=== PATIENT | female | born 1985 | race Caucasian/White ===

== ENCOUNTER 2020-09-02 10:39 | Outpatient (REF) | payer OTHER, SELFPAY | END 2020-09-02 10:40 | disposition home or self-care (01) | LOC: HO.LAB 10:39 | PROVIDERS: Visit Provider Internal Medicine | DX: Z20.828 Contact with and (suspected) exposure to other viral communicable diseases (principal) | CPT/HCPCS: C9803; U0003 ==

== ENCOUNTER 2020-10-17 10:56 | Outpatient (REF) | payer OTHER, SELFPAY | END 2020-10-17 10:57 | disposition home or self-care (01) | LOC: HO.LAB 10:56 | PROVIDERS: Visit Provider Internal Medicine | DX: Z20.828 Contact with and (suspected) exposure to other viral communicable diseases (principal) | CPT/HCPCS: C9803; U0003 ==

== ENCOUNTER 2020-11-07 10:34 | Outpatient (REF) | payer OTHER, SELFPAY | END 2020-11-07 10:35 | disposition home or self-care (01) | LOC: HO.LAB 10:34 | PROVIDERS: Visit Provider Internal Medicine | DX: Z20.822 Contact with and (suspected) exposure to COVID-19 (principal) | CPT/HCPCS: 36415; C9803; U0003 ==

== ENCOUNTER 2021-06-12 06:26 | Emergency (ER) | payer OTHER, SELFPAY ==
[2021-06-12 06:43] VITALS: BP 144/76; PULSE 107; RESP 24; TEMP 36.9; O2SAT 95; BMI 36.6
--- NOTE | 2021-06-12 06:44 | ED_ITS ---
HPI - Asthma General Chief Complaint: Dyspnea Stated Complaint: Asthma Time Seen by Provider: 06/12/21 06:44 Source: patient Mode of arrival: ambulatory Limitations: no limitations History of Present Illness complaint: asthma attack and wheezing Onset (ago): day(s) (today) Severity: moderate Context: other (?weather changes) Associated symptoms: none Asthma History: childhood onset Related Data Home Medications Medication Instructions Recorded Confirmed fluticasone propionate 50 INTRANASAL 09/27/20 09/27/20 mcg/actuation nasal spray,suspension Previous Rx's Medication Instructions Recorded albuterol sulfate 90 mcg/actuation 2 inh INHALATION Q3-4H #18 g 09/27/20 aerosol inhaler prednisone 20 mg tablet 60 mg PO DAILY 4 Days #12 tab 06/12/21 Allergies Allergy/AdvReac Type Severity Reaction Status Date / Time No Known Allergies Allergy Unknown NKA Verified 06/12/21 06:47 Review of Systems Review of Systems: Constitutional : No Fever, No Chills ENT/Mouth : No Hoarseness, No sore throat, No Rhinorrhea Eyes: No Redness, No Discharge, No Vision Changes Cardiovascular : No Chest Pain, positive SOB, positive Dyspnea on Exertion, No Edema Respiratory : positive Cough, No Sputum, positive Wheezing, Gastrointestinal : No Nausea, No Vomiting, No Diarrhea, No abdominal Pain Genitourinary : No Dysuria, No Hematuria Musculoskeletal : No joint pain, No Myalgias Skin : No rash Neuro : No Weakness, No Numbness, No Headache Psych : No anxiety, depression Heme/Lymph: No Bruising, No Bleeding Endocrine : No Polyuria, No Polydipsia All other systems reviewed and are negative [facility] Past Medical History Medical History Asthma Surgical History History of cholecystectomy Family History Family History Father Alcoholism Drug abuse Mother Hypertension Family/Other Hypertension Asthma Social History Social History (Updated 06/12/21 @ 06:59 by Ute Cleary DO) Alcohol intake: never Patient Tobacco Use Status: Current everyday Tobacco user Advance Directives: No Patient : No Physical Exam Vital Signs: Vital Signs: Last Vital Signs Temp 98.5 F 06/12/21 06:43 Pulse 90 08/23/21 07:02 Resp 24 H 06/12/21 06:43 BP 144/76 H 06/12/21 06:43 Pulse Ox 95 06/12/21 06:43 Body Mass Index 36.6 Appearance: Alert. Oriented X3. No acute distress. Eyes: Pupils equal, round and reactive to light. ENT: Pharynx normal. Neck: Normal inspection. Neck supple. CVS: Normal heart rate and rhythm. Pulses normal. Respiratory: No respiratory distress. Breath sounds diffuse mild end exp wheezes Abdomen: Soft and non-tender. Skin: Skin warm and dry. Normal skin color. Normal skin turgor. Extremities: No lower extremity edema. No calf ttp Neuro: Oriented X 3. No motor deficit. No sensory deficit. Course Course Course Narrative: 98% on RA, feels better, lungs CTAB after neb MDM - Asthma MDM Narrative Medical decision making narrative: 36 yo female with hx of asthma uses INH comes in with wheezing no fevers/productive cough or chest pain. Hx of same in the [place] [facility] this time of year. Will obtain COVID swab, 5mg neb, PO steroids, dispo per results and improvement Lab Data Labs: Lab Results 06/12/21 Range/Units 06:49 COVID-19 ([facility]) Negative (Negative) COVID-19 Clin Com See Note Discharge Plan Discharge Clinical Impression: Asthma Qualifiers: Asthma severity: moderate Asthma persistence: persistent Asthma complication type: with acute exacerbation Qualified Code(s): J45.41 - Moderate persistent asthma with (acute) exacerbation Patient Disposition: Home, Self-Care Instructions: Asthma (ED) Additional Instructions: return to ED for any worsening symptoms or concerns YOUR COVID TEST WAS NEGATIVE IN THE EMERGENCY DEPARTMENT TODAY TAKE 2 PUFFS EVERY 3 HOURS ON YOUR INHALER Prescriptions: New prednisone 20 mg tablet 60 mg PO DAILY 4 Days Qty: 12 RF: 0 No Action fluticasone propionate 50 mcg/actuation spray,suspension intranasal RF: 0 albuterol sulfate 90 mcg/actuation HFA aerosol inhaler 2 inh inhalation Q3-4H Qty: 18 RF: 8 Referrals: Jorge Gomez MD [Primary Care Provider] - 2 days (if not better) Stand Alone Forms: Work/School Release
[2021-06-12] MEDS: predniSONE 20 MG TABLET 60 MG PO (06:51)
[2021-06-12] MEDS: Albuterol Sulfate (0.083%) 2.5 MG/3 ML VIAL.NEB 5 MG INHALE (07:00)
[2021-06-12 07:02] VITALS: PULSE 90; O2SAT 99
[2021-06-12 07:11] LABS: COVID-19 Test Negative (Negative)
[2021-06-12 07:33] VITALS: PULSE 112; RESP 20; O2SAT 99
== END 2021-06-12 07:34 | disposition home or self-care (01) ==
PROVIDERS: Emergency Provider Emergency Medicine; PCP Internal Medicine
DX: J45.41 Moderate persistent asthma with (acute) exacerbation (principal); R06.00 Dyspnea, unspecified; Z20.822 Contact with and (suspected) exposure to COVID-19; Z79.899 Other long term (current) drug therapy
CPT/HCPCS: 36415; 87635; 94640; 99283; 99284

== ENCOUNTER 2023-11-18 13:07 | Outpatient (AMB) | payer OTHER, SELFPAY ==
[2023-11-18 13:10] VITALS: BP 138/86; PULSE 85; O2SAT 100; BMI 37.8
--- NOTE | 2023-11-18 13:10 | A.OFFPC_ITS ---
Vital Signs 11/18/23 13:10 Height 5 ft 5 in Weight 227 lb BMI 37.8 BP 138/86 Blood Pressure Location Lt brachial Position Sitting Pulse 85 Pulse Source Pulse Oximeter Pulse Oximetry (%) 100 Oxygen Delivery Method Room Air Intake Visit Reasons: I feel a lump in my stomach Traffic Circuit Engineer Required: No Fiscal Analyst: Present Allergies No Known Allergies Allergy (Unknown, Verified 11/18/23 13:10) NKA Tobacco use date assessed: 11/18/23 Dental Screening Dental Screen Date: 11/18/23 Did you have a dental visit in the last 12 months?: No Did you have a dental problem in the last 6 months where you did not have access to dental care?: No Was dental information given to patient?: Patient has dentist HPI I feel a lump in my stomach HPI Details enlargemet and discofort in upper abd whic appears to be a ventral hernia; she is obese [facility] Medical History (Updated 11/19/23 @ 09:22 by Jorge Gomez MD) Obesity Asthma Surgical History History of cholecystectomy Family History Father Alcoholism Drug abuse Substance use disorder Mother Hypertension Family/Other Hypertension Asthma Social History Housing: House Alcohol intake: never Patient Tobacco Use Status: Current everyday Tobacco user Tobacco use type: Cigarette Cigarettes Per Day: 2 e-Cigarette/Vaping Use: Never Used Second Hand Smoke Exposure: No service: No Current occupational status: employed Current occupational exposures/hazards: No Cognitive needs: No Hearing needs: No Vision needs: No Questionnaire PHQ-9 Over the last 2 weeks, how often have you been bothered by any of the following problems? 1. Little interest or pleasure in doing things: not at all 2. Feeling down, depressed, or hopeless: not at all 3. Trouble falling or staying asleep, or sleeping too much: not at all 4. Feeling tired or having little energy: not at all 5. Poor appetite or overeating: not at all 6. Feeling bad about yourself - or that you are a failure or have let yourself or your family down: not at all 7. Trouble concentrating on things, such as reading the newspaper or watching television: not at all 8. Moving or speaking so slowly that other people could have noticed. Or the opposite - being so fidgety or restless that you have been moving around a lot more than usual: not at all 9. Thoughts that you would be better off or of hurting yourself in some way: not at all Total score: 0 Depression Screening Interpretation: Negative Depression Screening Done: Yes 60827 - PHQ-9 Billing: Yes Source: Developed by Drs. Teddy Cannon, Anne Justice, Josh Isaac and colleagues, with an educational frannie from [employer]. Thrive Questionnaire Date Thrive assessed: 11/18/23 I am a: Patient What is your living situation today?: I have a steady place to live Within the past 12 months, did the food you bought not last and you didn't have the money to get more?: Never true Within the past 12 months, did you worry whether your food would run out before you got money to buy more?: Never true Do you have trouble paying for medicines?: No Do you have trouble getting transportation to medical appointments?: No Do you have trouble paying your heating and electricity bill?: No Do you have trouble taking care of your child, family member or friend?: No Do you have trouble with day-to-day activities such as bathing, preparing meals, shopping, managing finances, etc.?: No Are you currently unemployed and looking for a job?: No Are you interested in more education?: No Please select the resources that you would like help with: None THRIVE Score: 0 AUDIT C Alcohol Use Questionnaire (AUDIT-C) 1. How often do you have a drink containing alcohol?: 2-4 times a month 2. How many drinks containing alcohol do you have on a typical day when you are drinking?: 1 or 2 3. How often do you have six or more drinks on one occasion?: Never Total Score: 2 Score Reviewed/Action Taken: Yes BROOKLYNN-7 AMB Questionnaire BROOKLYNN-7 Date BROOKLYNN - 7 assessed: 11/18/23 Feeling nervous, anxious, or on edge: 0 = Not at all Not being able to stop or control worryin = Not at all Worrying too much about different things: 0 = Not at all Trouble relaxin = Not at all Being so restless that it is hard to sit still: 0 = Not at all Becoming easily annoyed or irritable: 0 = Not at all Feeling afraid as if something awful might happen: 0 = Not at all Total BROOKLYNN-7 score (0-4 normal; 5-9 mild; 10-14 moderate; 15-21 severe): 0 Source: Developed by Drs. Teddy Cannon, Anne Justice, Josh Isaac and colleagues, with an educational frannie from [employer]. Review of Systems Const Denies chills, Denies headache(s) and Denies weight loss ENT Denies headache(s) Card Denies chest pain, Denies syncope, Denies irregular heart rhythm and Denies dyspnea Resp Denies chest congestion, Denies cough and Denies dyspnea GI Denies abdominal pain, Denies change in stool character, Denies nausea and Denies vomiting Musc Denies deformity and Denies joint swelling Neuro Denies syncope and Denies headache(s) Physical exam (Primary Care) Vital Signs: Last Vital Signs Pulse 85 11/18/23 13:10 BP 138/86 11/18/23 13:10 Pulse Ox 100 11/18/23 13:10 Oxygen Delivery Method Room Air 11/18/23 13:10 BMI result Body Mass Index 37.8 Tobacco/Smoking Status: Tobacco use Status Tobacco use date assessed 11/18/23 11/18/23 13:12 Patient Tobacco Use Status Current everyday Tobacco 11/18/23 13:12 Tobacco use type Cigarette 11/18/23 13:12 e-Cigarette/Vaping Use Never Used 11/18/23 13:12 PHQ-9: PHQ-9 Score PHQ-9: Total score 0 11/18/23 13:18 Depression Screening Interpretation: Negative Thrive Assessment: Date of Thrive Assessment Date Thrive assessed 11/18/23 11/18/23 13:12 Const General: cooperative, comfortable, no acute distress and alert Neck Neck: Yes no lymphadenopathy Thyroid: Thyroid normal Resp Effort & Inspection: normal respiratory effort Auscultation: clear to auscultation bilaterally Percussion: percussion normal Cardio Jugular venous distension: no JVD Palpation: normal PMI Rate: regular rate Rhythm: regular rhythm Heart sounds: S1 normal heart sound present and S2 normal heart sound present GI Other: 4 cm ventral hernia Palpation (GI): No hepatosplenomegaly present Skin General skin exam: no rashes or lesions noted Extrem General: Yes no clubbing, cyanosis or edema Assessment and Plan Assessment & Plan (1) Ventral hernia: Code(s): K43.9 - Ventral hernia without obstruction or gangrene Plan: ct ordered Orders: Orders CT abdomen wo IV con 11/18/23 K43.9 - Ventral hernia without obstruction or lewis grene Coding Level of Care Code Est Pt Level 3 (59236) Diagnoses Ventral hernia K43.9
== END 2023-11-18 13:24 | disposition home or self-care (01) ==
PROVIDERS: PCP Internal Medicine; Visit Provider Internal Medicine
DX: K43.9 Ventral hernia without obstruction or gangrene (principal)
CPT/HCPCS: 99213

== ENCOUNTER 2024-01-07 14:44 | Outpatient (REF) | payer OTHER, SELFPAY ==
--- NOTE | ~2024-01-07 | CT_ITS ---
EXAMINATION: CT ABDOMEN WITHOUT CONTRAST CLINICAL INFORMATION: Ventral hernia without obstruction. COMPARISON: Abdominal ultrasound dated 01/23/2008. TECHNIQUE: Contiguous axial thin section helical images of the abdomen were performed without contrast. The data set was reformatted in the coronal and sagittal planes and reviewed on an independent workstation. This CT examination was performed using dose optimization techniques as appropriate, variously including the following: *Automated exposure control *Adjustment of mA and/or kV according to patient size (this includes techniques or standardized protocols for targeted exams where dose is matched to indication/reason for exam; i.e. extremities or head) *Use of iterative reconstruction technique DLP: 518 mGy-cm FINDINGS: LUNG BASES: At the posterolateral right base (4:89), a 7 mm noncalcified nodule is seen. LIVER, GALLBLADDER, AND BILIARY TREE: The liver is normal in size, shape, and attenuation. No focal hepatic lesion or biliary ductal dilatation is present. The gallbladder is surgically absent. PANCREAS: Unremarkable SPLEEN: Unremarkable ADRENAL GLANDS: Unremarkable KIDNEYS AND URETERS: The kidneys are normal in size, shape, and attenuation. No hydronephrosis, hydroureter, or calculi seen. No perinephric stranding. GASTROINTESTINAL TRACT: The small and large bowel are unremarkable. No obstruction, free intraperitoneal air or abscess is seen. There is no focal bowel wall thickening. The vermiform appendix is not included in the [id number]. ABDOMINAL WALL: A fat-containing supraumbilical hernia defect is seen (3:46 and 6:98). This shows hernia sac dimensions of 10.6 x 5.4 x 7.4 cm and a neck measuring 2.5 x 1.8 cm. As well, there is an umbilical hernia defect with neck measuring 2.0 x 1.6 cm (4:438 and 6:106). LYMPH NODES: Normal VASCULAR: Unremarkable OSSEOUS STRUCTURES: There is multi-level mild lumbar endplate arthropathy. There is a bilateral L5 spondylolysis defect. No acute or aggressive osseous abnormality is seen. CT/CT abdomen wo IV con IMPRESSION: 1. A fat-containing supraumbilical hernia defect is seen, with dimensions as detailed. In addition, there is a smaller fat-containing umbilical hernia defect. 2. The gallbladder is surgically absent. 3. There is a bilateral L5 spondylolysis defect. 4. A 7 mm noncalcified, nonspecific nodule seen at the posterolateral right base. According to the UPDATED 2017 Fleischner Society recommendations, the advised follow-up imaging for a single 6-8 mm solid nodule is: LOW RISK PATIENT: CT at 6-12 months, then consider CT at 18-24 months. HIGH RISK PATIENT: CT at 6-12 months, then at 18-[address] examination of the chest at this time. Fleischner guidelines were followed.
== END 2024-01-07 14:45 | disposition home or self-care (01) ==
LOC: HO.CT 14:44
PROVIDERS: PCP Internal Medicine; Visit Provider Internal Medicine
DX: K43.9 Ventral hernia without obstruction or gangrene (principal)
CPT/HCPCS: 74150

== ENCOUNTER 2024-04-15 13:26 | Outpatient (AMB) | payer OTHER, SELFPAY ==
--- NOTE | 2024-04-15 13:27 | MHC.PC.OV ---
Vital Signs 04/15/24 13:28 Height 5 ft 5 in Weight 222 lb BMI 36.9 BP 120/80 Blood Pressure Location Lt brachial Position Sitting Pulse 85 Pulse Source Pulse Oximeter Pulse Oximetry (%) 98 Oxygen Delivery Method Room Air Intake Visit Reasons: follow up Photo Journalist Required: No Pre Wave Assembler: Not Required per policy Accompanied by: Self / Same As Patient Allergies No Known Allergies Allergy (Unknown, Verified 04/15/24 13:28) NKA Medication List - Last Reconciled 04/15/24 by Jorge Gomez MD albuterol sulfate 2.5 mg (3 mL) inhalation Q4-6H PRN 30 days albuterol sulfate 90 mcg/actuation 2 inhalations inhalation Q3-4H fluticasone propionate 50 mcg/actuation intranasal fluticasone propionate 110 mcg/actuation (Flovent HFA) 1 puff inhalation BID ibuprofen 600 mg PO Q6H PRN methylprednisolone (Medrol (Trevor)) PO PER PKG DIR Tobacco use date assessed: 11/18/23 Dental Screening Dental Screen Date: 11/18/23 HPI follow up HPI Details has an abdominal hernia she would like fixed [facility] Medical History (Updated 11/19/23 @ 09:22 by Jorge Gomez MD) Obesity Asthma Surgical History History of cholecystectomy Family History Father Alcoholism Drug abuse Substance use disorder Mother Hypertension Family/Other Hypertension Asthma Social History Housing: House Alcohol intake: never Patient Tobacco Use Status: Current everyday Tobacco user Tobacco use type: Cigarette Cigarettes Per Day: 2 e-Cigarette/Vaping Use: Never Used Second Hand Smoke Exposure: No service: No Current occupational status: employed Current occupational exposures/hazards: No Cognitive needs: No Hearing needs: No Vision needs: No Questionnaire Thrive Questionnaire Date Thrive assessed: 11/18/23 BROOKLYNN-7 AMB Questionnaire BROOKLYNN-7 Date BROOKLYNN - 7 assessed: 11/18/23 Source: Developed by Drs. Teddy Cannon, Anne Justice, Josh Isaac and colleagues, with an educational frannie from [employer]. Review of Systems Const Denies chills, Denies headache(s) and Denies weight loss ENT Denies headache(s) Card Denies chest pain, Denies syncope, Denies irregular heart rhythm and Denies dyspnea Resp Denies chest congestion, Denies cough and Denies dyspnea GI Denies abdominal pain, Denies change in stool character, Denies nausea and Denies vomiting Musc Denies deformity and Denies joint swelling Neuro Denies syncope and Denies headache(s) Physical exam (Primary Care) Vital Signs: Last Vital Signs Pulse 85 04/15/24 13:28 BP 120/80 04/15/24 13:28 Pulse Ox 98 04/15/24 13:28 Oxygen Delivery Method Room Air 04/15/24 13:28 BMI result Body Mass Index 36.9 Tobacco/Smoking Status: Tobacco use Status Tobacco use date assessed 11/18/23 04/15/24 13:27 Patient Tobacco Use Status Current everyday Tobacco 04/15/24 13:27 Tobacco use type Cigarette 04/15/24 13:27 e-Cigarette/Vaping Use Never Used 04/15/24 13:27 Thrive Assessment: Date of Thrive Assessment Date Thrive assessed 11/18/23 04/15/24 13:27 Const General: cooperative, comfortable, no acute distress and alert Neck Neck: Yes no lymphadenopathy Thyroid: Thyroid normal Resp Effort & Inspection: normal respiratory effort Auscultation: clear to auscultation bilaterally Percussion: percussion normal Cardio Jugular venous distension: no JVD Palpation: normal PMI Rate: regular rate Rhythm: regular rhythm Heart sounds: S1 normal heart sound present and S2 normal heart sound present GI Other: abd wall hernia above umbilicus; 5cm in size Palpation (GI): No hepatosplenomegaly present Skin General skin exam: no rashes or lesions noted Extrem General: Yes no clubbing, cyanosis or edema Assessment and Plan Assessment & Plan (1) Abdominal wall hernia: Code(s): K43.9 - Ventral hernia without obstruction or gangrene Plan: ref surgery Orders: Referrals General Surgery Referral K43.9 - Ventral hernia without obstruction or gangrene Coding Level of Care Code Est Pt Level 3 (29400) Diagnoses Abdominal wall hernia K43.9
[2024-04-15 13:28] VITALS: BP 120/80; PULSE 85; O2SAT 98; BMI 36.9
== END 2024-04-15 16:24 | disposition home or self-care (01) ==
PROVIDERS: PCP Internal Medicine; Visit Provider Internal Medicine
DX: K43.9 Ventral hernia without obstruction or gangrene (principal)
CPT/HCPCS: 99213

== ENCOUNTER 2024-05-05 12:45 | Outpatient (AMB) | payer OTHER, SELFPAY ==
--- NOTE | 2024-05-05 12:59 | MHC.OFFVIS ---
Vital Signs 05/05/24 13:06 Height 5 ft 5 in Weight 227 lb BMI 37.8 BP 145/85 H Blood Pressure Location Rt brachial Position Sitting Pulse 95 Intake Visit Reasons: Ventral hernia Intake Note: Patient referred by pcp Dr. Gomez for ventral hernia. Present for 6months. Patient c/o: bulging out, bothersome. ABD CT: 01-07-2024. Air Grinder Required: No Accompanied by: mother Adriana Allergies No Known Allergies Allergy (Unknown, Verified 05/05/24 13:03) NKA HPI Comments Details: Patient presents with her mother. She has had approximate 1 year history of progressively enlarging supraumbilical ventral hernia. Because of progression of symptoms, she presents here for evaluation and would like to have this repaired. Patient had a CT scan of the abdomen pelvis which confirms this large hernia and also demonstrates a small umbilical hernia. Patient has no other GI issues or complaints. She is tolerating a diet. She is having regular bowel habits. Occasional strenuous activities. Chart was reviewed and patient evaluated [facility] Medical History Obesity Asthma Surgical History (Updated 05/05/24 @ 13:13 by Audie Woods MD) H/O tubal ligation History of cholecystectomy Family History Father Alcoholism Drug abuse Substance use disorder Mother Hypertension Family/Other Hypertension Asthma Social History Housing: House Alcohol intake: never Patient Tobacco Use Status: Current everyday Tobacco user Tobacco use type: Cigarette Cigarettes Per Day: 2 e-Cigarette/Vaping Use: Never Used Second Hand Smoke Exposure: No service: No Current occupational status: employed Current occupational exposures/hazards: No Cognitive needs: No Hearing needs: No Vision needs: No Physical Exam Vital Signs: Last Vital Signs Pulse 95 05/05/24 13:06 BP 145/85 H 05/05/24 13:06 BMI result Body Mass Index 37.8 Chest Other: Chest breath sounds bilaterally, HS 1 in 2 GI Other: Patient was examined both supine and standing with Valsalva. Bilateral groin exam negative. Corpulent abdomen. Patient was a very large approximately 10 cm incarcerated supraumbilical ventral hernia. She also is a proximally 2 cm reducible umbilical hernia. Abdomen otherwise benign. Assessment & Plan Assessment & Plan (1) Ventral hernia: Code(s): K43.9 - Ventral hernia without obstruction or gangrene Category: Surgical (2) Umbilical hernia: Code(s): K42.9 - Umbilical hernia without obstruction or gangrene Category: Surgical Plan Risks, benefits, and alternatives of supraumbilical ventral hernia and umbilical hernia repair with mesh were reviewed with the patient and included but not limited to bleeding, infection, recurrence, numbness, pain, scarring, bowel injury and the patient wishes to proceed. All questions answered. Arrangements were made for this. Coding Level of Care Code New Pt Level 5 (60545) Diagnoses Ventral hernia K43.9 Umbilical hernia K42.9
[2024-05-05 13:06] VITALS: BP 145/85; PULSE 95; BMI 37.8
== END 2024-05-05 13:10 | disposition home or self-care (01) ==
PROVIDERS: PCP Internal Medicine; Referring Provider Internal Medicine; Visit Provider Surgery
DX: K43.9 Ventral hernia without obstruction or gangrene (principal); K42.9 Umbilical hernia without obstruction or gangrene
CPT/HCPCS: 99204

== ENCOUNTER → 2024-05-05 12:45 | Outpatient (BNVA) | payer OTHER, SELFPAY | PROVIDERS: PCP Internal Medicine; Referring Provider Internal Medicine; Visit Provider Surgery | DX: K43.9 Ventral hernia without obstruction or gangrene (principal); K42.9 Umbilical hernia without obstruction or gangrene | CPT/HCPCS: 99202 ==

== ENCOUNTER 2024-06-04 09:12 | Day surgery (SDC) | payer OTHER, SELFPAY ==
[2024-06-02 09:25] VITALS: BMI 37.8
--- NOTE | 2024-06-02 13:41 | HO.ANESPROP2 ---
HPI - Anesthesia Eval Consult details Narrative: 39yo F for Open Incarcerated Hernia Ventral Reducible with mesh, Hernia Umbilical Reducible with mesh PMFSH Active Problems Active Problems: All Active Problems Umbilical hernia (Acute) Ventral hernia (Acute) Obesity (Acute) Physical exam (Acute) Asthma (Acute) Past Medical History Medical History Obesity Asthma Family History Family History Father Alcoholism Drug abuse Substance use disorder Mother Hypertension Family/Other Hypertension Asthma Surgical History Surgical History (Updated 05/05/24 @ 13:13 by Audie Woods MD) H/O tubal ligation History of cholecystectomy Social History Social History Housing: House Alcohol intake: never Patient Tobacco Use Status: Current everyday Tobacco user Tobacco use type: Cigarette Cigarettes Per Day: 2 e-Cigarette/Vaping Use: Never Used Second Hand Smoke Exposure: No service: No Current occupational status: employed Current occupational exposures/hazards: No Cognitive needs: No Hearing needs: No Vision needs: No Meds Allergies Allergy/AdvReac Type Severity Reaction Status Date / Time No Known Allergies Allergy Unknown NKA Verified 05/05/24 13:03 Home Medications ?Medication ?Instructions ?Recorded ?Confirmed ?Last Taken ?Type fluticasone propionate 50 intranasal 09/27/20 05/05/24 Unknown History mcg/actuation nasal spray,suspension Exam Height,Weight and Vital Signs: Height 5 ft 5 in Weight 102.965 kg Assessment and Plan Assessment Anesthesia Assessment: Chart Reviewed
--- NOTE | 2024-06-03 11:16 | MHC.SHP ---
Pre-Procedural Eval Section A - 24 Hr Update-Section A only Date of Service: 06/04/24 The patient is an INPATIENT: No Changes since office visit: No Cold of Flu in the past 2 weeks, No New Medical Problems, No Changes in Medication and No Patient answered all questions Section B - Complete if H&P > 30 days Chief Complaint: Ventral hernia without obstruction or gangrene Allergies: Allergies Allergy/AdvReac Type Severity Reaction Status Date / Time No Known Allergies Allergy Unknown NKA Verified 05/05/24 13:03 Review of Systems Sugical H&P ROS: Negative: Constitution, Cardiovascular, Respiratory, Neurological, Psychiatric, Hem-Onc, Allergic/Immunologic, Gastrointestinal, Genitourinary, Musculoskeletal, Integumentary, Endocrine and Eyes/Ears/Nose/Throat Exam Surgical H&P Exam: Normal: HEENT, Normal: Heart, Normal: Lungs, Normal: Extremities, Normal: Abdomen, Normal: Skin and Normal: Neurological Plan I have reviewed the history and physical and performed a pertinent physical examination on my patient. No changes have occurred unless specified. Time Spent With Patient Time: Total time managing care of this patient today ____ minutes.
[2024-06-04] VITALS (11 sets, daily range): BP systolic 115–168; BP diastolic 71–102; PULSE 72–91; RESP 14–18; TEMP 36.4–36.5; O2SAT 94–98; BMI 36.9
[2024-06-04] MEDS: Albuterol Sulfate (0.083%) 2.5 MG/3 ML VIAL.NEB INHALE (10:07)
[2024-06-04] MEDS: Lactated Ringers 1,000 ML 100 ML IVCONT (10:32)
--- NOTE | 2024-06-04 10:35 | P.CONAN_ITS ---
[facility] Active Problems Active Problems: All Active Problems Umbilical hernia (Acute) Ventral hernia (Acute) Obesity (Acute) Physical exam (Acute) Asthma (Acute) Past Medical History Medical History Obesity Asthma Functional capacity: independent ambulation Patient : No Family History Family History Father Alcoholism Drug abuse Substance use disorder Mother Hypertension Family/Other Hypertension Asthma Family history of problems with anesthesia: No Surgical History Surgical History H/O tubal ligation History of cholecystectomy History of Problems with Anesthesia: No Social History Social History Housing: House Alcohol intake: never Patient Tobacco Use Status: Current everyday Tobacco user Tobacco use type: Cigarette Cigarettes Per Day: 5 e-Cigarette/Vaping Use: Never Used Second Hand Smoke Exposure: No service: No Current occupational status: employed Current occupational exposures/hazards: No Cognitive needs: No Hearing needs: No Vision needs: No Meds Allergies Allergy/AdvReac Type Severity Reaction Status Date / Time No Known Allergies Allergy Unknown NKA Verified 06/04/24 09:36 Active Medications: Current Medications Albuterol Sulfate (Albuterol Sulfate (0.083%) 2.5 Mg/3 Ml Vial.Neb) 2.5 mg INHALE ONCE PRN PRN Reason: Shortness of Breath/Wheezing Last Admin: 06/04/24 10:07 Dose: 2.5 mg Lactated Ringer's (Lr) 1,000 mls @ 100 mls/hr IVCONT .Q10H GAIL Last Admin: 06/04/24 10:32 Dose: 100 mls/hr Home Medications ?Medication ?Instructions ?Recorded ?Confirmed ?Last Taken ?Type fluticasone propionate 50 1 spray intranasal DAILY 09/27/20 06/04/24 Unknown History mcg/actuation nasal spray,suspension Exam Height,Weight and Vital Signs: Height 5 ft 5 in Weight 100.698 kg Last Vital Signs Temp 97.7 F 06/04/24 09:54 Pulse 88 06/04/24 09:54 Resp 16 06/04/24 09:54 BP 143/73 H 06/04/24 09:54 Pulse Ox 97 06/04/24 09:54 O2 Del Method Room Air 06/04/24 09:54 Airway Mallampati Class: III TM Dist: >3cm Neck ROM: Full Heart: RRR Lungs: CTA Assessment and Plan Assessment Anesthesia Assessment: Anesthesia Plan Discussed, Smoking Cess. Discussed and Chart Reviewed Final Anesthetic Review Family History of Problems with Anesthesia: No History of Problems with Anesthesia: No NPO: Yes ASA Class: III Final Preanesthetic Review: Meds/Allgs Chart Reviewed, Consent Obtained/Reviewed and Anes Risks/Benef Reviewed Patient Risk: Intermediate Procedure Risk: Intermediate Anesthetic Plan Anesthetic Plan: GA Disposition: Standard PACU
[2024-06-04] MEDS: fentaNYL citrate/PF 100 MCG/2 ML VIAL 25 MCG IVPUSH ×2 (12:45→12:50)
--- NOTE | 2024-06-04 13:13 | W.PM.OPN ---
Operative Note Operative Note Date of Service: 06/04/24 Narrative: Preoperative diagnosis: [] 1. Large incarcerated supraumbilical ventral hernia 2. Incarcerated umbilical/incisional hernia Postop diagnosis: [] The same Procedure [] 1. Open repair of incarcerated supraumbilical ventral hernia with Bard mesh. Hernia sac measured approximately 8 cm. Open repair of incarcerated umbilical/incisional hernia. Defect measured approximately 2 cm. Surgeon: [] Chuck Resource Technician: [] Holland Type of Anesthesia: [] General Indication for surgery: [] Symptomatic enlarging hernias. Supraumbilical hernia required partial omentectomy because of the incarcerated omentum could not be reduced. Findings: [] Patient brought to the operating room, placed on operative table in supine position, after an adequate level of general anesthesia was induced, the abdomen which was very corpulent, was prepped and draped in usual sterile fashion. Commencing with the upper midline hernia, Where atransverse incision was made and carried down through skin, subcutaneous tissue, were massive hernia sac was identified and circumferentially dissected down to fascia. Sac was opened and circumferentially trend dissected using Bovie at the fascia margin. Large incarcerated omentum in the sac was partially dated using sequence of clamps, cutting, and time with 2-0 Vicryl ties. Of mental stump was then reduced. Fascia margins were circumferentially cleared inappropriately sized Bard mesh was placed in this defect and the superficial layer of the mesh was circumferentially sutured to the surrounding fascia using interrupted 0 Ethibond suture At completion procedure, mesh was in excellent position with no tension or gaps. Wound was irrigated, secured hemostasis, and closed using using subcutaneous interrupted 3-0 Vicryl sutures followed by interrupted inverted dermal 3-0 Vicryl sutures. The umbilical incisional hernia was approached using an infraumbilicalIncision through the prior scar from The previous hernia repair carried down through skin, subcutaneous tissue, with the hernia sac was identified and circumferentially dissected down to fascia. Sac was opened and omental contents were amputated using Bovie and remainder reduced. Fascia margins were circumferentially cleared. Appropriate sized Bard mesh was placed in this defect and the superficial layer of the mesh was circumferentially sutured to the surrounding fascia using interrupted 0 Ethibond suture. At completion of procedure, mesh was in good position with no tension or gaps. Wound was irrigated, secured hemostasis, and closed using interrupted inverted dermal 3-0 Vicryl sutures followed by Steri-Strips and sterile dressings. Each wound was infiltrated wound% lidocaine/0.5% Marcaine at completion. Sponge, needle, and instrument counts were reported correct. Patient tolerated the procedure well and emerged from anesthesia stable condition. EBL minimal
[2024-06-04] MEDS: ondansetron HCL 4 MG/2 ML VIAL IVPUSH (13:29)
--- NOTE | 2024-06-04 18:31 | HO.POSTANES ---
Post Anesthesia Evaluation Post Anesthesia Evaluation Date of Service: 06/04/24 Vital Signs: Vital Signs Temp Pulse Resp BP Pulse Ox O2 Del Method O2 Flow Rate 06/04/24 13:50 97.5 F 84 14 134/84 96 Room Air 06/04/24 13:35 72 15 115/71 95 Room Air 06/04/24 13:20 81 16 138/84 96 Room Air 06/04/24 13:05 91 18 160/92 H 94 Room Air 06/04/24 13:00 88 15 163/97 H 96 Simple Mask 2 06/04/24 12:55 90 16 158/95 H 96 Simple Mask 2 06/04/24 12:50 88 16 168/102 H 98 2 06/04/24 12:50 16 06/04/24 12:45 16 06/04/24 12:45 89 16 162/100 H 98 2 06/04/24 12:40 88 16 161/96 H 98 Simple Mask 4 06/04/24 12:35 97.7 F 88 16 168/101 H 97 Simple Mask 6 06/04/24 09:54 97.7 F 88 16 143/73 H 97 Room Air Anesthesia: General LMA Mental Status: Awake Pain Control: Satisfactory Nausea/Vomiting: None Hydration: Adequate
== END 2024-06-04 14:35 | disposition home or self-care (01) ==
PROVIDERS: PCP Internal Medicine; Visit Provider Surgery
PROC: (CPT 49616; principal; 2024-06-04 11:10)
PROC: (CPT 49616; 2024-06-04 11:10)
DX: K43.6 Other and unspecified ventral hernia with obstruction, without gangrene (principal); K43.0 Incisional hernia with obstruction, without gangrene; J45.909 Unspecified asthma, uncomplicated; F17.210 Nicotine dependence, cigarettes, uncomplicated
CPT/HCPCS: 49616; 88302; 88304; C1781; J0690; J1100; J2250; J2405; J2704; J2795; J3010

== ENCOUNTER → 2024-06-04 09:12 | Outpatient (BNV) | payer OTHER, SELFPAY | PROVIDERS: PCP Internal Medicine; Visit Provider Surgery | DX: K43.9 Ventral hernia without obstruction or gangrene (principal); K42.9 Umbilical hernia without obstruction or gangrene | CPT/HCPCS: 49594 ==

== ENCOUNTER 2024-06-15 12:48 | Outpatient (AMB) | payer OTHER, SELFPAY ==
--- NOTE | 2024-06-15 12:58 | MHC.OFFVIS ---
Intake Visit Reasons: S/P ventral & umbilical hernia repair w/mesh Intake Note: Patient here s/p ventral and umbilical hernia w/mesh. Reports incisions healing well. Patient c/o: no concerns SX: 06-04-2024. 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 She has no wound issues or complaints. She is increasing her activity level. She is tolerating regular diet. He is having regular bowel habits. PFSH Medical History (Updated 06/12/24 @ 08:36 by MELISSA Catalan) Supraumbilical hernia (06/04/24) Obesity Asthma Surgical History (Updated 06/15/24 @ 13:50 by Audie Woods MD) Umbilical hernia (06/04/24) H/O tubal ligation History of cholecystectomy Family History Father Alcoholism Drug abuse Substance use disorder Mother Hypertension Family/Other Hypertension Asthma Social History Housing: House Alcohol intake: never Patient Tobacco Use Status: Current everyday Tobacco user Tobacco use type: Cigarette Cigarettes Per Day: 5 e-Cigarette/Vaping Use: Never Used Second Hand Smoke Exposure: No service: No Current occupational status: employed Current occupational exposures/hazards: No Cognitive needs: No Hearing needs: No Vision needs: No Physical Exam GI Other: Abdomen is soft. Incision clean dry and intact healing well Assessment & Plan Assessment & Plan (1) Postop check: Code(s): Z09 - Encounter for follow-up examination after completed treatment for conditions other than malignant neoplasm Category: Surgical Plan Patient was given local instructions including avoiding strenuous activities for next few weeks time and will otherwise follow-up p.r.n.. All questions answered Coding Level of Care Code Global (33629) Diagnoses Postop check Z09
== END 2024-06-15 13:07 | disposition home or self-care (01) ==
PROVIDERS: PCP Internal Medicine; Visit Provider Surgery
DX: Z09 Encounter for follow-up examination after completed treatment for conditions other than malignant neoplasm (principal)
CPT/HCPCS: 99212

== ENCOUNTER → 2024-06-15 12:48 | Outpatient (BNVA) | payer OTHER, SELFPAY | PROVIDERS: PCP Internal Medicine; Visit Provider Surgery | DX: Z09 Encounter for follow-up examination after completed treatment for conditions other than malignant neoplasm (principal) | CPT/HCPCS: 99212 ==

== ENCOUNTER 2024-11-18 09:24 | Outpatient (AMB) | payer OTHER, SELFPAY ==
--- NOTE | 2024-11-18 09:42 | A.OFFPC_ITS ---
Vital Signs 11/18/24 09:44 Height 5 ft 5 in Weight 229 lb BMI 38.1 BP 122/70 Blood Pressure Location Lt brachial Position Sitting Pulse 83 Pulse Source Pulse Oximeter Temp 97.1 F Temp Source Skin Pulse Oximetry (%) 98 Oxygen Delivery Method Room Air Intake Visit Reasons: Rsched - From 08/12 Intake Note: Patient is here today for a physical. Entry Level Administrative Assistant Required: No Monitoring Engineer: Not Required per policy Accompanied by: Self / Same As Patient Allergies No Known Allergies Allergy (Unknown, Verified 11/18/24 09:43) NKA Medication List - Last Reconciled 11/19/24 by Jorge Gomez MD albuterol sulfate 90 mcg/actuation 2 inhalations inhalation Q3-4H albuterol sulfate 2.5 mg (3 mL) inhalation Q4-6H PRN 30 days fluticasone propionate 50 mcg/actuation 1 spray intranasal DAILY fluticasone propionate 110 mcg/actuation (Flovent HFA) 1 puff inhalation BID ibuprofen 600 mg PO Q6H PRN Tobacco use date assessed: 11/18/24 Dental Screening Dental Screen Date: 11/18/24 Did you have a dental visit in the last 12 months?: No Did you have a dental problem in the last 6 months where you did not have access to dental care?: No Was dental information given to patient?: Patient has dentist HPI Rsched - From 08/12 HPI Details asthma and allergic rhinitis; stable [facility] Medical History (Updated 06/12/24 @ 08:36 by MELISSA Catalan) Supraumbilical hernia (06/04/24) Obesity Asthma Surgical History Umbilical hernia (06/04/24) H/O tubal ligation History of cholecystectomy Family History Father Alcoholism Drug abuse Substance use disorder Mother Hypertension Family/Other Hypertension Asthma Social History (Updated 11/18/24 @ 09:47 by MELISSA Mcadams) Housing: House Alcohol intake: current Alcohol intake frequency: holidays/special occasions only Patient Tobacco Use Status: Current everyday Tobacco user Tobacco use type: Cigarette Cigarette Packs Per Day: 0.5 Cigarettes Per Day: 4 e-Cigarette/Vaping Use: Never Used Second Hand Smoke Exposure: Yes service: No Current occupational status: employed Current occupational exposures/hazards: No Cognitive needs: No Hearing needs: No Vision needs: No Questionnaire PHQ-9 Over the last 2 weeks, how often have you been bothered by any of the following problems? 1. Little interest or pleasure in doing things: not at all 2. Feeling down, depressed, or hopeless: not at all 3. Trouble falling or staying asleep, or sleeping too much: nearly every day 4. Feeling tired or having little energy: nearly every day 5. Poor appetite or overeating: not at all 6. Feeling bad about yourself - or that you are a failure or have let yourself or your family down: not at all 7. Trouble concentrating on things, such as reading the newspaper or watching television: not at all 8. Moving or speaking so slowly that other people could have noticed. Or the opposite - being so fidgety or restless that you have been moving around a lot more than usual: not at all 9. Thoughts that you would be better off or of hurting yourself in some way: not at all Total score: 6 Depression Screening Interpretation: Positive Depression Screening Done: Yes Source: Developed by Drs. Teddy Cannon, Anne Justice, Josh Isaac and colleagues, with an educational frannie from [employer]. Thrive Questionnaire Date Thrive assessed: 11/18/24 I am a: Patient What is your living situation today?: I have a steady place to live Within the past 12 months, did the food you bought not last and you didn't have the money to get more?: Never true Within the past 12 months, did you worry whether your food would run out before you got money to buy more?: Never true Do you have trouble paying for medicines?: No Do you have trouble getting transportation to medical appointments?: No Do you have trouble paying your heating and electricity bill?: No Do you have trouble taking care of your child, family member or friend?: No Do you have trouble with day-to-day activities such as bathing, preparing meals, shopping, managing finances, etc.?: No Are you currently unemployed and looking for a job?: No Are you interested in more education?: No Please select the resources that you would like help with: None Currently or been in a relationship where the following occur: No concerns reported THRIVE Score: 0 AUDIT C Alcohol Use Questionnaire (AUDIT-C) 1. How often do you have a drink containing alcohol?: Monthly or less 2. How many drinks containing alcohol do you have on a typical day when you are drinking?: 3 or 4 3. How often do you have six or more drinks on one occasion?: Monthly Total Score: 4 BROOKLYNN-7 AMB Questionnaire BROOKLYNN-7 Date BROOKLYNN - 7 assessed: 11/18/24 Feeling nervous, anxious, or on edge: 0 = Not at all Not being able to stop or control worryin = Not at all Worrying too much about different things: 1 = Several days Trouble relaxin = Not at all Being so restless that it is hard to sit still: 0 = Not at all Becoming easily annoyed or irritable: 0 = Not at all Feeling afraid as if something awful might happen: 0 = Not at all Total BROOKLYNN-7 score (0-4 normal; 5-9 mild; 10-14 moderate; 15-21 severe): 1 Source: Developed by Drs. Teddy Cannon, Anne Justice, Josh Isaac and colleagues, with an educational frannie from [employer]. Review of Systems Const Denies chills, Denies fatigue, Denies headache(s) and Denies weight loss Eyes Denies change in vision, Denies diplopia and Denies eye pain ENT Denies vertigo, Denies dizziness, Denies headache(s) and Denies nasal discharge Card Denies chest pain, Denies rapid heart rate and Denies dyspnea on exertion Resp Denies chest congestion, Denies cough, Denies pain with cough and Denies dyspnea on exertion GI Denies abdominal pain, Denies hematochezia and Denies change in bowel habits Musc Denies myalgias, Denies arthralgias and Denies joint swelling Skin/Breast Denies lesions and Denies unusual bruising Neuro Denies vertigo, Denies dizziness, Denies headache(s) and Denies focal weakness Endo Denies fatigue Physical exam (Primary Care) Vital Signs: Last Vital Signs Temp 97.1 F 11/18/24 09:44 Pulse 83 11/18/24 09:44 BP 122/70 11/18/24 09:44 Pulse Ox 98 11/18/24 09:44 Oxygen Delivery Method Room Air 11/18/24 09:44 BMI result Body Mass Index 38.1 Tobacco/Smoking Status: Tobacco use Status Tobacco use date assessed 11/18/24 11/18/24 09:49 Patient Tobacco Use Status Current everyday Tobacco 11/18/24 09:47 Tobacco use type Cigarette 11/18/24 09:47 e-Cigarette/Vaping Use Never Used 11/18/24 09:47 PHQ-9: PHQ-9 Score PHQ-9: Total score 6 11/18/24 10:01 Depression Screening Interpretation: Positive Thrive Assessment: Date of Thrive Assessment Date Thrive assessed 11/18/24 11/18/24 09:43 Currently or been in a relationship where the following occur: No concerns reported Const General: cooperative, healthy appearing and no acute distress Orientation/consciousness: oriented to person, oriented to place and oriented to time HENMT Head: Yes normal to inspection, Yes normocephalic and Yes atraumatic Mouth: Normal oral and palatal mucosa present and tongue normal Throat: Yes posterior oropharynx normal and Yes uvula midline Eyes General: appearance normal, both eyes and all related structures Neck Neck: Yes normal visual inspection, Yes full ROM and Yes no lymphadenopathy Thyroid: Thyroid normal Carotids: normal carotid upstroke Chest Chest palpation & inspection: normal inspection of the chest Resp Effort & Inspection: normal respiratory effort and able to speak in complete sentences Auscultation: clear to auscultation bilaterally Cardio Jugular venous distension: no JVD Palpation: normal PMI Rate: regular rate Rhythm: regular rhythm Heart sounds: S1 normal heart sound present and S2 normal heart sound present GI Inspection: Yes normal to inspection Palpation (GI): Soft to palpation and No hepatosplenomegaly present Auscultation: normal bowel sounds General: Yes no CVA tenderness Back/Spine/Pelvis Back: no CVA tenderness Skin General skin exam: no rashes or lesions noted Neuro General: oriented to person, oriented to place and oriented to time Extrem General: Yes normal to inspection and Yes full ROM Office Procedures Flu Questionnaire Does the patient have a severe egg allergy?: No Does the patient have severe life threatening allergies?: No Does the patient have a fever or illness today?: No Has the patient ever had Guillain-Robbins Syndrome?: No Has the patient ever had any past reaction to a flu shot?: No Immunizations Fluarix Triv [id number] (PF) 45 mcg (15 mcg x 3)/0.5 mL IM syringe Performing Provider: Jorge Gomez MD [facility] [place] [facility] Administered by: Margot Juan RN on 11/18/24 10:01 Dose Route Admin Location Dispensed Lot Number Expiration Date ND Diamond Driller Helper 0.5 mL IM Left Deltoid 0.5 mL [id number] 04/19/25 [id number] [employer] VIS Given Date VIS Provided VIS Publication Date 11/18/24 Single Vaccine 21 Eligibility Eligibility Date Funding Source Not [facility] Eligible 11/18/24 Private Coding Level of Care Code Est Pt Prev Care 40-64y(14279) Diagnoses Asthma J45.41 Asthma complication type: with acute exacerbation Asthma persistence: persistent Asthma severity: moderate Physical exam Z00.00 Assessment & Plan Assessment & Plan (1) Asthma: Code(s): J45.909 - Unspecified asthma, uncomplicated Category: Medical Qualifiers: Asthma complication type: with acute exacerbation Asthma persistence: persistent Asthma severity: moderate Qualified Code(s): J45.41 - Moderate persistent asthma with (acute) exacerbation Plan: stable; same rx (2) Physical exam: Code(s): Z00.00 - Encounter for general adult medical examination without abnormal findings Category: Medical Plan: stable; do labs Orders: Orders Complete Blood Count Auto Diff 11/18/24 Z13.0 - Encounter for screening for diseases of the blood and blood-forming organs and certain disorders involving the immune mechanism Influenza [id number] Immunization 11/18/24 Z23 - Encounter for immunization Lipid Panel 11/18/24 Z13.220 - Encounter for screening for lipoid disorders Thyroid Stimulating Hormone 11/18/24 Z13.29 - Encounter for screening for other suspected endocrine disorder Comprehensive [place]. Panel Fast 11/18/24 Z13.9 - Encounter for screening, unspecified
[2024-11-18 09:44] VITALS: BP 122/70; PULSE 83; TEMP 36.2; O2SAT 98; BMI 38.1
== END 2024-11-18 10:12 | disposition home or self-care (01) ==
PROVIDERS: PCP Internal Medicine; Visit Provider Internal Medicine
DX: J45.41 Moderate persistent asthma with (acute) exacerbation (principal); Z00.00 Encounter for general adult medical examination without abnormal findings

== ENCOUNTER → 2024-11-18 09:24 | Outpatient (BNVA) | payer OTHER, SELFPAY | PROVIDERS: PCP Internal Medicine; Visit Provider Internal Medicine | DX: Z00.00 Encounter for general adult medical examination without abnormal findings (principal); J45.41 Moderate persistent asthma with (acute) exacerbation; Z23 Encounter for immunization | CPT/HCPCS: 90471; 90656; 99396 ==

== ENCOUNTER 2025-03-23 09:29 | Outpatient (REF) | payer OTHER, SELFPAY ==
[2025-03-23 11:17] LABS: MANUAL DIFF FLAG NO
[2025-03-23 12:04] LABS: Basophils Percent Auto 0.2 % (0-2); Eosinophils Absolute Auto 0.4 X10*3/uL (0.0-0.4); Eosinophils Percent Auto 4.3 % (0-4); Hematocrit 41.7 % (37.0-47.0); Hemoglobin 13.1 g/dl (12.0-16.0); Imm Gran Abs Auto 0.02 X10*3/uL (0.00-0.03); Imm Gran Pct Auto 0.2 % (0.0-0.4); Lymphocytes Percent Auto 36.8 % (20-40); Mean Corpuscular HGB Conc 31.4 g/dl (31.0-35.0); Mean Corpuscular Hemoglobin 25.9 pg (27.0-33.0); Mean Corpuscular Volume 82.4 fL (80.0-98.0); Mean Platelet Volume 11.2 fL (9.4-12.3); Monocytes Absolute Auto 0.4 X10*3/uL (0.1-1.2); Monocytes Percent Auto 4.5 % (2-11); Neutrophils Absolute Auto 4.3 x10*3/uL (2.0-8.3); Platelet Count 300 X10*3/uL (160-400); Red Blood Count 5.06 X10*6/uL (4.20-5.50); Red Cell Distribution Width 14.8 % (11.0-16.0); White Blood Count 8.1 X10*3/uL (4.8-10.8)
[2025-03-23 12:39] LABS: Appearance Urine Clear; Color Urine Yellow; Glucose Urine UA Negative (Negative); Leukocyte Esterase Urine Small (1+) (Negative); Nitrite Urine Negative (Negative); PH 5.5 (5.0-9.0); Specific Gravity - Urine 1.025 (1.005-1.025); UMIC TRIGGER UACC YES; Urine Blood Negative (Negative); Urine Ketones Negative (Negative); Urine Protein Negative (Neg-Trace)
[2025-03-23 12:46] LABS: Erythrocyte Sedimentation Rate 12 MM/HR (0-20)
[2025-03-23 12:50] LABS: Bacteria Urine 1+ (None Seen); Hyaline Casts Urine 0-2 /LPF (0-2); RBC Urine 0-2 /HPF (0-2); UACC Culture Trigger YES; WBC Urine 0-5 /HPF (0-5)
[2025-03-23 12:52] LABS: Alanine Aminotransferase 15 U/L (0-31); Alkaline Phosphatase 97 U/L (39-117); Anion Gap 11 (12-20); Aspartate Amino Transferase 17 U/L (5-31); Bilirubin Total 0.4 mg/dL (0.0-1.0); Blood Urea Nitrogen 11 mg/dL (9-16); Carbon Dioxide 28 mmol/L (22-29); Chloride 108 mmol/L (96-108); Cholesterol 211 mg/dL (<200); Estimated Glomerular Filt Rate > 60; Glucose Fasting 86 mg/dL (60-99); HDL Cholesterol 41 mg/dL (>40); LDL Cholesterol Calculated 138 mg/dL (<100); Potassium 4.1 mmol/L (3.3-5.1); Sodium 143 mmol/L (135-145); Total Protein 7.2 g/dL (6.5-8.0); Triglycerides 160 mg/dL (<150)
[2025-03-23 12:56] LABS: Syphilis Screen Nonreactive (Nonreactive)
[2025-03-23 12:57] LABS: HIV AB/AG Nonreactive (Nonreactive); HIV Num 1 0.05 S/CO (0.00-0.99)
[2025-03-23 12:59] LABS: TSH reflex Free T4 0.95 uIU/mL (0.32-4.0); Vitamin D 25-OH Total 17.7 ng/mL (>30)
[2025-03-23 13:58] LABS: CT PCR NOT DETECTED (Not Detect.); NG PCR NOT DETECTED (Not Detect.)
[2025-03-24 07:28] LABS: CRP High Sensitivity 14.9 mg/L
== END 2025-03-23 09:30 | disposition home or self-care (01) ==
LOC: HO.LAB 09:29
DX: N92.0 Excessive and frequent menstruation with regular cycle (principal); G47.10 Hypersomnia, unspecified; F41.0 Panic disorder [episodic paroxysmal anxiety]; K59.09 Other constipation; J45.41 Moderate persistent asthma with (acute) exacerbation; Z00.00 Encounter for general adult medical examination without abnormal findings; E66.9 Obesity, unspecified; Z68.37 Body mass index [BMI] 37.0-37.9, adult; Z11.3 Encounter for screening for infections with a predominantly sexual mode of transmission
CPT/HCPCS: 80053; 80061; 81001; 82306; 84443; 85025; 85652; 86141; 86780; 87086; 87389; 87491; 87591; 96127; 96160; 99212

== ENCOUNTER 2025-03-23 09:29 | Outpatient (AMB) | payer OTHER, SELFPAY ==
[2025-03-23 09:53] VITALS: BP 132/96; PULSE 76; RESP 18; TEMP 37; O2SAT 98; BMI 37.7
--- NOTE | 2025-03-23 09:53 | A.OFFPC_ITS ---
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: No Accompanied by: Self / Same As Patient Allergies No Known Allergies Allergy (Unknown, Verified 03/23/25 10:23) NKA Medication List - Last Reconciled 03/23/25 by NATHALIA Olivares albuterol sulfate 90 mcg/actuation 2 inhalations inhalation Q3-4H albuterol sulfate 2.5 mg (3 mL) inhalation Q4-6H PRN 30 days fluticasone propionate 50 mcg/actuation 1 spray intranasal DAILY fluticasone propionate 110 mcg/actuation (Flovent HFA) 1 puff inhalation BID ibuprofen 600 mg PO Q6H PRN Tobacco use date assessed: 03/23/25 Dental Screening Dental Screen Date: 03/23/25 Did you have a dental visit in the last 12 months?: No Did you have a dental problem in the last 6 months where you did not have access to dental care?: No Was dental information given to patient?: Patient has dentist HPI YULIANA DR Gomez HPI Details The patient is a 40-year-old female presenting to transition to care from Dr. Gomez. She has complaints of menorrhagia and anxiety disorder. The episodes of menorrhagia have persisted over a considerable period, causing an immense burden due to excessive menstrual bleeding that affects her routine and necessitates workplace absenteeism. She mentioned informing her prior physician about the issue; however, no intervention was pursued at that time. The lately occurring anxiety episodes started three weeks ago and present as sudden warm sensations, tremors, and panic, coupled with lightheadedness and a sensation of potential fainting. Such episodes last three to four minutes and have occurred often enough to disrupt her daily life. The patient also reports profound fatigue and concerns about potential anemia secondary to excessive menstrual bleeding. Despite maintaining regular and adequate sleep schedules, she continues to experience unrelenting tiredness in the mornings. She believes there may be underlying health issues such as thyroid disorder contributing to these symptoms. Additionally, chronic constipation is noted, likely linked to the absence of her gallbladder, despite the frequency of bowel movements. Reports that she [place] [facility] [place], [place] not been there because she was told that they are doing the exams every 3 years now by her previous PCP [facility] Medical History (Updated 04/04/25 @ 10:44 by NATHALIA Olivares) Chronic constipation Supraumbilical hernia (06/04/24) Obesity Asthma Surgical History Umbilical hernia (06/04/24) H/O tubal ligation History of cholecystectomy Family History Father Alcoholism Drug abuse Substance use disorder Mother Hypertension Family/Other Hypertension Asthma Social History Household Members: Family Household Members Other:: Son Housing: House Alcohol intake: current Alcohol intake frequency: holidays/special occasions only Patient Tobacco Use Status: Current someday Tobacco user (Socially; On weekends) Tobacco use type: Cigarette e-Cigarette/Vaping Use: Never Used Second Hand Smoke Exposure: Yes service: No Current occupational status: employed Current occupational exposures/hazards: No Cognitive needs: No Hearing needs: No Vision needs: No Female Reproductive History Menstrual Date of last menstrual period: 03/13/25 Questionnaire PHQ-9 Over the last 2 weeks, how often have you been bothered by any of the following problems? 1. Little interest or pleasure in doing things: nearly every day 2. Feeling down, depressed, or hopeless: not at all 3. Trouble falling or staying asleep, or sleeping too much: nearly every day 4. Feeling tired or having little energy: nearly every day 5. Poor appetite or overeating: not at all 6. Feeling bad about yourself - or that you are a failure or have let yourself or your family down: not at all 7. Trouble concentrating on things, such as reading the newspaper or watching television: not at all 8. Moving or speaking so slowly that other people could have noticed. Or the opposite - being so fidgety or restless that you have been moving around a lot more than usual: not at all 9. Thoughts that you would be better off or of hurting yourself in some way: not at all Total score: 9 Depression Screening Interpretation: Positive Depression Screening Done: Yes 21801 - PHQ-9 Billing: Yes Source: Developed by Drs. Teddy Cannon, Anne Justice, Josh Isaac and colleagues, with an educational frannie from [employer]. Thrive Questionnaire Date Thrive assessed: 03/23/25 I am a: Patient What is your living situation today?: I have a steady place to live Within the past 12 months, did the food you bought not last and you didn't have the money to get more?: Never true Within the past 12 months, did you worry whether your food would run out before you got money to buy more?: Never true Do you have trouble paying for medicines?: No Do you have trouble getting transportation to medical appointments?: No Do you have trouble paying your heating and electricity bill?: No Do you have trouble taking care of your child, family member or friend?: No Do you have trouble with day-to-day activities such as bathing, preparing meals, shopping, managing finances, etc.?: No Are you currently unemployed and looking for a job?: No Are you interested in more education?: No Please select the resources that you would like help with: None Currently or been in a relationship where the following occur: No concerns reported THRIVE Score: 0 AUDIT C Alcohol Use Questionnaire (AUDIT-C) 1. How often do you have a drink containing alcohol?: Monthly or less Total Score: 1 BROOKLYNN-7 AMB Questionnaire BROOKLYNN-7 Date BROOKLYNN - 7 assessed: 03/23/25 Feeling nervous, anxious, or on edge: 1 = Several days Not being able to stop or control worryin = Not at all Worrying too much about different things: 0 = Not at all Trouble relaxin = Not at all Being so restless that it is hard to sit still: 0 = Not at all Becoming easily annoyed or irritable: 1 = Several days Feeling afraid as if something awful might happen: 1 = Several days Total BROOKLYNN-7 score (0-4 normal; 5-9 mild; 10-14 moderate; 15-21 severe): 3 Source: Developed by Drs. Teddy Cannon, Anne Justice, Josh Isaac and colleagues, with an educational frannie from [employer]. BROOKLYNN-7 Assessment Billing BROOKLYNN-7 Assessment Tool: BROOKLYNN-7 Assessment 82103 ACT Questionnaire In the past 4 weeks, how much of the time did your asthma keep you from getting as much done at work, school or at home?: None of the time During the past 4 weeks, how often have you had shortness of breath?: Not at all During the past 4 weeks, how often did your asthma symptoms wake you up at night or earlier than usual in the morning?: Not at all During the past 4 weeks, how often have you had to use your rescue inhaler or nebulizer medication?: 1-2 times a week How would you rate your asthma control during the past 4 weeks?: Well controlled ACT Interpretation: Negative Score: 21 Review of Systems Const Denies headache(s) Eyes Denies loss of vision ENT Denies vertigo, Denies dizziness, Denies headache(s) and Denies sore throat Card Denies chest pain, Denies leg edema and Denies lightheadedness Resp Denies cough, Denies hemoptysis and Denies wheezing GI Denies abdominal pain, Denies melena, Denies constipation, Denies diarrhea and Denies vomiting Denies urinary frequency, Denies dysuria and Denies urinary urgency Musc Denies arthralgias, Denies joint swelling, Denies numbness and Denies tingling Neuro Denies Abnormal speech present, Denies behavioral changes, Denies vertigo, Denies dizziness, Denies headache(s), Denies loss of vision, Denies memory loss, Denies numbness and Denies tingling Psych Denies anxiety, Denies behavioral changes, Denies depression, Denies memory loss and Denies panic attacks [place]/Lymph Denies easy bleeding and Denies easy bruising Aller/Immun Denies wheezing Physical exam (Primary Care) Vital Signs: Last Vital Signs Temp 98.6 F 03/23/25 09:53 Pulse 76 03/23/25 09:53 Resp 18 03/23/25 09:53 BP 132/88 03/23/25 10:41 Pulse Ox 98 03/23/25 09:53 Oxygen Delivery Method Room Air 03/23/25 09:53 BMI result Body Mass Index 37.7 Tobacco/Smoking Status: Tobacco use Status Tobacco use date assessed 03/23/25 03/23/25 10:10 Patient Tobacco Use Status Current someday Tobacco ( 03/23/25 10:10 Socially; On weekends) Tobacco use type Cigarette 03/23/25 10:10 e-Cigarette/Vaping Use Never Used 03/23/25 10:10 PHQ-9: PHQ-9 Score PHQ-9: Total score 9 03/23/25 10:32 Depression Screening Interpretation: Positive Thrive Assessment: Date of Thrive Assessment Date Thrive assessed 03/23/25 03/23/25 10:10 Currently or been in a relationship where the following occur: No concerns reported Const General: healthy appearing, no acute distress, alert and awake Nutritional Appearance: well nourished Orientation/consciousness: oriented to person, oriented to place and oriented to time HENMT Ears: TM's normal bilaterally General nose exam: Normal nasal mucous membranes and turbinates present Eyes Conjunctivae: conjunctivae normal Sclerae: sclerae normal Pupils: Equal, round and reactive pupils present Neck Neck: Yes no lymphadenopathy and Yes no JVD Thyroid: Thyroid normal Carotids: no bruits Resp Effort & Inspection: normal respiratory effort and not tachypneic Auscultation: no crackles, no rales, no rhonchi and no wheezes Cardio Rate: regular rate Rhythm: regular rhythm Heart sounds: no murmurs and normal S1 and S2 GI Palpation (GI): Soft to palpation, nontender, no hepatomegaly and no splenomegaly Auscultation: normal bowel sounds Skin General skin exam: no rashes or lesions noted and dry skin Neuro General: oriented to person, oriented to place and oriented to time Cranial nerves: Yes Equal, round and reactive pupils present Speech: No Abnormal speech present Gait exam (Neuro): Normal gait present Motor exam (neuro): no tremor noted Extrem Right upper extremity: full ROM Left upper extremity: full ROM Right lower extremity: full ROM; no edema Left lower extremity: full ROM; no edema Psych Mental Status: mental status grossly normal Speech and movement: Normal speech and movement present Affect: normal affect Attitude: cooperative Thought process: Normal thought process present Coding Level of Care Code Est Pt Level 4 (14034) Diagnoses Menorrhagia with regular cycle N92.0 Menorrhagia type: with regular cycle Daytime hypersomnia G47.10 Anxiety F41.9 Chronic constipation K59.09 Asthma J45.41 Asthma complication type: with acute exacerbation Asthma persistence: persistent Asthma severity: moderate Additional Codes Asthma Control Questionnaire - ACT Interpretation: Negative ([id number]) BROOKLYNN-7 Assessment Billing - BROOKLYNN-7 Assessment Tool: BROOKLYNN-7 Assessment 95337 ([id number]) PHQ-9 - 72226 - PHQ-9 Billing: Yes ([id number]) Time Spent (min) 39 Assessment & Plan Assessment & Plan (1) Heavy menstrual period: Code(s): N92.0 - Excessive and frequent menstruation with regular cycle Category: Medical Qualifiers: Menorrhagia type: with regular cycle Qualified Code(s): N92.0 - Excessive and frequent menstruation with regular cycle (2) Daytime hypersomnia: Code(s): G47.10 - Hypersomnia, unspecified Category: Medical (3) Anxiety: Code(s): F41.9 - Anxiety disorder, unspecified Category: Medical (4) Chronic constipation: Code(s): K59.09 - Other constipation Category: Medical (5) Asthma: Code(s): J45.909 - Unspecified asthma, uncomplicated Category: Medical Qualifiers: Asthma complication type: with acute exacerbation Asthma persistence: persistent Asthma severity: moderate Qualified Code(s): J45.41 - Moderate persistent asthma with (acute) exacerbation Plan To address the menorrhagia, I advise the patient to schedule a gynecological appointment. For her anxiety disorder, I prescribed Sertraline and plan to follow up in five weeks. I will conduct lab tests to assess thyroid function and check for anemia due to persistent fatigue. Considering a potential sleep disor yobany, a sleep study may be considered in future evaluations. For her chronic constipation, I recommend increasing fluid and fiber intake, with MiraLax as needed. Current asthma management will continue, ensuring that treatment is effective. The patient was advised to consider therapy options for her anxiety symptoms, with an emphasis on monitoring the efficacy of pharmacologic management. Patient was informed and verbally consented to the use of an ambient scribe for clinic note documentation during this visit. Orders: Orders Complete Blood Count Auto Diff 03/23/25 J45.41 - Moderate persistent asthma with (acute) exacerbation, N92.0 - Excessive and frequent menstruation with regular cycle, F41.0 - Panic disorder [episodic paroxysmal anxiety], Z00.00 - Encounter for general adult medical examination without abnormal findings, E66.9 - Obesity, unspecified UA CC w/rflx Micro + Cult 03/23/25 J45.41 - Moderate persistent asthma with (acute) exacerbation, N92.0 - Excessive and frequent menstruation with regular cycle, F41.0 - Panic disorder [episodic paroxysmal anxiety], Z00.00 - Encounter for general adult medical examination without abnormal findings, E66.9 - Obesity, unspecified TSH reflex Free T4 03/23/25 J45.41 - Moderate persistent asthma with (acute) exacerbation, N92.0 - Excessive and frequent menstruation with regular cycle, F41.0 - Panic disorder [episodic paroxysmal anxiety], Z00.00 - Encounter for general adult medical examination without abnormal findings, E66.9 - Obesity, unspecified Erythrocyte Sedimentation Rate 03/23/25 J45.41 - Moderate persistent asthma with (acute) exacerbation, N92.0 - Excessive and frequent menstruation with regular cycle, F41.0 - Panic disorder [episodic paroxysmal anxiety], Z00.00 - Encounter for general adult medical examination without abnormal findings, E66.9 - Obesity, unspecified HIV Ab/Ag 03/23/25 Z11.3 - Encounter for screening for infections with a predominantly sexual mode of transmission Comprehensive [place]. Panel Fast 03/23/25 J45.41 - Moderate persistent asthma with (acute) exacerbation, N92.0 - Excessive and frequent menstruation with regular cycle, F41.0 - Panic disorder [episodic paroxysmal anxiety], Z00.00 - Encounter for general adult medical examination without abnormal findings, E66.9 - Obesity, unspecified Lipid Panel 03/23/25 J45.41 - Moderate persistent asthma with (acute) exacerbation, N92.0 - Excessive and frequent menstruation with regular cycle, F41.0 - Panic disorder [episodic paroxysmal anxiety], Z00.00 - Encounter for ge [employer] [facility] [employer] clinical adult medical examination without abnormal findings, E66.9 - Obesity, unspecified Vitamin D 25-OH Total 03/23/25 J45.41 - Moderate persistent asthma with (acute) exacerbation, N92.0 - Excessive and frequent menstruation with regular cycle, F41.0 - Panic disorder [episodic paroxysmal anxiety], Z00.00 - Encounter for general adult medical examination without abnormal findings, E66.9 - Obesity, unspecified CRP High Sensitivity 03/23/25 J45.41 - Moderate persistent asthma with (acute) exacerbation, N92.0 - Excessive and frequent menstruation with regular cycle, F41.0 - Panic disorder [episodic paroxysmal anxiety], Z00.00 - Encounter for general adult medical examination without abnormal findings, E66.9 - Obesity, unspecified Syphilis Screen 03/23/25 Z11.3 - Encounter for screening for infections with a predominantly sexual mode of transmission CT NG by PCR 03/23/25 Z11.3 - Encounter for screening for infections with a predominantly sexual mode of transmission Medications: New polyethylene glycol 3350 (Miralax) 17 grams PO DAILY 238 grams 2RF sertraline 50 mg PO DAILY 30 tabs 3RF Patient Instructions: - Schedule a gynecological appointment for heavy menstrual bleeding. - Begin taking Sertraline as prescribed for anxiety; monitor how you feel. - Go for lab tests to check for possible anemia and thyroid issues. - Increase fluid and fiber intake; use MiraLax if needed for constipation. - Continue using inhalers for asthma as directed. - Plan a follow-up visit in five weeks to discuss how treatment is going. - Consider scheduling a sleep study if fatigue persists. - Reach out if there are any concerns or worsening of symptoms.
[2025-03-23 10:41] VITALS: BP 132/88
== END 2025-03-23 10:55 | disposition home or self-care (01) ==
LOC: HO.HMCH 09:30
DX: N92.0 Excessive and frequent menstruation with regular cycle (principal); G47.10 Hypersomnia, unspecified; F41.9 Anxiety disorder, unspecified; K59.09 Other constipation; J45.41 Moderate persistent asthma with (acute) exacerbation

== ENCOUNTER 2025-04-27 10:05 | Outpatient (AMB) | payer OTHER, SELFPAY ==
--- NOTE | 2025-04-27 10:07 | MHC.OFFVIS ---
Vital Signs 04/27/25 10:15 Height 5 ft 5 in Weight 226 lb BMI 37.6 BP 128/72 Intake Visit Reasons: excessive and frequent menses Intake Note: Last pap smear 5 or so years ago, normal hx. 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 No previous screening mammogram and no recent co testing done PFSH Medical History Chronic constipation Supraumbilical hernia (06/04/24) Obesity Asthma Surgical History Umbilical hernia (06/04/24) H/O tubal ligation History of cholecystectomy Family History Father Alcoholism Drug abuse Substance use disorder Mother Hypertension Family/Other Hypertension Asthma Social History Household Members: Family Household Members Other:: Son Housing: House Alcohol intake: current Alcohol intake frequency: holidays/special occasions only Patient Tobacco Use Status: Current someday Tobacco user (Socially; On weekends) Tobacco use type: Cigarette e-Cigarette/Vaping Use: Never Used Second Hand Smoke Exposure: Yes service: No Current occupational status: employed Current occupational exposures/hazards: No Cognitive needs: No Hearing needs: No Vision needs: No Female Reproductive History Menstrual Age of Menarche: 8 Duration of menses: 3-5 days Date of last menstrual period: 04/10/25 control method: permanent sterilization Total pregnancies: 3 Full term: 3 Review of Systems Const All systems reviewed & are unremarkable except as noted in HPI and below Card Reports as per HPI Resp Reports as per HPI GI Reports as per HPI and Reports no additional complaints Reports as per HPI Physical Exam Const General: cooperative, healthy appearing and comfortable Chest Chest palpation & inspection: normal inspection of the chest and normal palpation of entire chest wall Breast/axilla inspection: normal inspection of the breasts and normal inspection of the axillae Breast/axilla palpation: normal palpation of the breasts, normal palpation of the axillae and no axillary lymphadenopathy Resp Effort & Inspection: normal respiratory effort Auscultation: clear to auscultation bilaterally Percussion: percussion normal Cardio Palpation: normal PMI Rate: regular rate Rhythm: regular rhythm Heart sounds: no murmurs and no rubs Peripheral pulses: Peripheral pulses 2+ throughout GI Inspection: Yes normal to inspection Palpation (GI): Soft to palpation, nontender, no guarding, not rigid and No hepatosplenomegaly present Percussion: Yes normal to percussion Auscultation: normal bowel sounds Rectal Exam - Female: deferred General: Yes bladder normal to palpation External Female Exam: No lesion Speculum Exam - Vagina: normal appearance of the vagina, normal palpation, normal vaginal discharge and not erythematous Speculum Exam - Cervix: normal appearance of the cervix and normal palpation Bimanual exam- vagina & uterus: normal bimanual exam, normal palpation, uterine size normal, bladder normal to palpation, consistency normal and normal palpation Bimanual Exam- Adnexa, other: normal adnexae, no masses and no tenderness Assessment & Plan Assessment & Plan (1) Abnormal uterine bleeding (AUB): Code(s): N93.9 - Abnormal uterine and vaginal bleeding, unspecified Category: Medical Plan: Screening mammogram, Co testing done, GC and chlamydia taken CBC, TSH, HCG, and pelvic ultrasound ordered. Discussed with the patient the different causes of abnormal bleeding including thyroid disorders, uterine and ovarian pathology, endometrial hyperplasia, carcinoma and other potential causes. Discussed with the patient the work up including CBC (to r/o anemia), TSH, pelvic Ultrasound, endometrial biopsy to r/o endometrial pathology. All questions answered and the patient verbalized understanding. Instructed the patient to schedule an appointment for an endometrial biopsy in 2 weeks. Orders: Orders Complete Blood Count no Diff Today N93.9 - Abnormal uterine and vaginal bleeding, unspecified TSH reflex Free T4 Today N93.9 - Abnormal uterine and vaginal bleeding, unspecified HCG Quantitative Today N93.9 - Abnormal uterine and vaginal bleeding, unspecified US pelvic and transvaginal Today N93.9 - Abnormal uterine and vaginal bleeding, unspecified MM screening mammo BI Today Z12.31 - Encounter for screening mammogram for malignant neoplasm of breast Coding Level of Care Code New Pt Level 3 (93514) Diagnoses Abnormal uterine bleeding (AUB) N93.9
[2025-04-27 10:15] VITALS: BP 128/72; BMI 37.6
== END 2025-04-27 10:43 | disposition home or self-care (01) ==
LOC: HO.HWS 10:05
PROVIDERS: Visit Provider Obstetrics & Gynecology
DX: N93.9 Abnormal uterine and vaginal bleeding, unspecified (principal); Z32.02 Encounter for pregnancy test, result negative
CPT/HCPCS: 99203

== ENCOUNTER 2025-04-27 10:05 | Outpatient (REF) | payer OTHER, SELFPAY ==
[2025-04-27 11:50] LABS: Hematocrit 40.6 % (37.0-47.0); Hemoglobin 13.3 g/dl (12.0-16.0); Mean Corpuscular HGB Conc 32.8 g/dl (31.0-35.0); Mean Corpuscular Hemoglobin 25.9 pg (27.0-33.0); Mean Corpuscular Volume 79.1 fL (80.0-98.0); NRBC Abs Auto 0.000 X10*3/uL (0.0-0.012); NRBC Pct Auto 0.0 /100WBC (0.0-0.2); Platelet Count 295 X10*3/uL (160-400); Red Blood Count 5.13 X10*6/uL (4.20-5.50); White Blood Count 9.7 X10*3/uL (4.8-10.8)
== END 2025-04-27 10:06 | disposition home or self-care (01) ==
LOC: HO.LAB 10:05
PROVIDERS: Visit Provider Obstetrics & Gynecology
DX: Z12.31 Encounter for screening mammogram for malignant neoplasm of breast (principal); N93.9 Abnormal uterine and vaginal bleeding, unspecified; R10.2 Pelvic and perineal pain; Z98.51 Tubal ligation status
CPT/HCPCS: 36415; 81025; 84443; 84702; 85027; 99202

== ENCOUNTER 2025-04-27 10:49 | Outpatient (REF) | payer OTHER, SELFPAY ==
[2025-04-27 16:21] LABS: CT PCR NOT DETECTED (Not Detect.); NG PCR NOT DETECTED (Not Detect.)
== END 2025-04-27 10:50 | disposition home or self-care (01) ==
LOC: HO.LNP 10:49
PROVIDERS: Visit Provider Obstetrics & Gynecology
DX: Z11.51 Encounter for screening for human papillomavirus (HPV) (principal); Z11.8 Encounter for screening for other infectious and parasitic diseases; Z11.3 Encounter for screening for infections with a predominantly sexual mode of transmission; N93.9 Abnormal uterine and vaginal bleeding, unspecified
CPT/HCPCS: 87491; 87591; 87626; 88175

== ENCOUNTER 2025-05-07 14:32 | Outpatient (REF) | payer OTHER, SELFPAY ==
--- NOTE | ~2025-05-07 | US_ITS ---
EXAMINATION: US PELVIS TRANSABDOMINAL AND TRANSVAGINAL HISTORY: N93.9 - Abnormal uterine and vaginal bleeding, unspecified COMPARISON: There are no prior studies available for comparison. TECHNIQUE: Transabdominal and endovaginal real-time 2D engel-scale ultrasound was performed. FINDINGS: Uterus: The uterus is normal in size, measuring 11.1 x 6.5 x 7.0 cm. Myometrium has a normal echotexture. No fibroids are identified. Endometrium: The endometrial stripe measures 11 mm in thickness. There are nabothian cysts in the cervix. Right ovary: The right ovary measures 3.6 x 1.9 x 3.1 cm. The right ovary is normal in size and echotexture. Left ovary: The left ovary measures 3.5 x 2.1 x 2.4 cm. The left ovary is normal in size and echotexture. Pelvic fluid: none. US/US pelvic and transvaginal IMPRESSION: Thickened endometrial stripe. Direct visualization is suggested. Electronically signed by: Teddy Arias MD 05/07/2025 03:24 PM EDT
== END 2025-05-07 14:33 | disposition home or self-care (01) ==
LOC: HO.HMGCX 14:32
PROVIDERS: Visit Provider Obstetrics & Gynecology
DX: N93.9 Abnormal uterine and vaginal bleeding, unspecified (principal)
CPT/HCPCS: 76830; 76856

== ENCOUNTER → 2025-05-07 14:51 | Outpatient (BNV) | payer OTHER, SELFPAY | PROVIDERS: Visit Provider Radiology Diagnostic Radiology | DX: N93.9 Abnormal uterine and vaginal bleeding, unspecified (principal) | CPT/HCPCS: 76830; 76856 ==

== ENCOUNTER 2025-05-13 10:04 | Outpatient (AMB) | payer OTHER, SELFPAY ==
--- NOTE | 2025-05-13 10:08 | MHC.PC.OV ---
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 Accompanied by: Self / Same As Patient Allergies No Known Allergies Allergy (Unknown, Verified 05/13/25 10:42) NKA Medication List - Last Reconciled 05/13/25 by NATHALIA Olivares albuterol sulfate 90 mcg/actuation 2 inhalations inhalation Q3-4H albuterol sulfate 2.5 mg (3 mL) inhalation Q4-6H PRN 30 days fluticasone propionate 50 mcg/actuation 1 spray intranasal DAILY fluticasone propionate 110 mcg/actuation (Flovent HFA) 1 puff inhalation BID ibuprofen 600 mg PO Q6H PRN polyethylene glycol 3350 (Miralax) 17 grams PO DAILY sertraline 50 mg PO DAILY Tobacco use date assessed: 05/13/25 Dental Screening Dental Screen Date: 05/13/25 Did you have a dental visit in the last 12 months?: No Did you have a dental problem in the last 6 months where you did not have access to dental care?: No Was dental information given to patient?: Patient has dentist HPI anxiety-new med/constipation HPI Details The patient is a 40-year-old female presenting with anxiety and heartburn management. The patient reports experiencing anxiety, for which she has started medication at the lowest dose, with slight improvement noted. The plan is to increase the dosage to 100 mg, with instructions to take two 50 mg tablets until the new dosage is available. Follow-up is planned in six weeks to monitor the anxiety management. The patient also reports chronic constipation, for which she has started using MiraLax, noting improvement in symptoms. A recent gynecological examination revealed an abnormal ultrasound, necessitating a biopsy scheduled for the . The patient experiences frequent heartburn, primarily at night, and has not taken any medication for it previously. She has been advised to start omeprazole 40 mg, to be taken in the morning before meals. Dietary modifications have been discussed, including avoiding eating close to bedtime and reducing intake of trigger foods. The patient has a history of elevated cholesterol, with lifestyle modifications recommended, such as reducing intake of fried foods and high-cholesterol items like red meat and egg yolks. A follow-up on cholesterol levels is planned in three months. Vitamin D levels were found to be low, and supplementation with 2000 IU daily has been recommended. The patient reports seeing obgyn pap smear came out abnormal and she is going for a biopsy. Anxiety is feeling somewhat better, but still occuring, increased sertraline to 100mg. Sleep study ordered. Frequent heartburn, omeprazole 40 mg order, she will return in 6 weeks for anxiety/heartburn evaluation. She will follow up in 3 months for her other chronic conditions. [facility] Medical History Chronic constipation Supraumbilical hernia (06/04/24) Obesity Asthma Surgical History Umbilical hernia (06/04/24) H/O tubal ligation History of cholecystectomy Family History Father Alcoholism Drug abuse Substance use disorder Mother Hypertension Family/Other Hypertension Asthma Social History Household Members: Family Household Members Other:: Son Housing: House Alcohol intake: current Alcohol intake frequency: holidays/special occasions only Patient Tobacco Use Status: Current someday Tobacco user (Socially; On weekends) Tobacco use type: Cigarette e-Cigarette/Vaping Use: Never Used Second Hand Smoke Exposure: Yes service: No Current occupational status: employed Current occupational exposures/hazards: No Cognitive needs: No Hearing needs: No Vision needs: No Female Reproductive History Menstrual Age of Menarche: 8 Questionnaire Thrive Questionnaire Date Thrive assessed: 05/13/25 I am a: Patient What is your living situation today?: I have a steady place to live Within the past 12 months, did the food you bought not last and you didn't have the money to get more?: Never true Within the past 12 months, did you worry whether your food would run out before you got money to buy more?: Never true Do you have trouble paying for medicines?: No Do you have trouble getting transportation to medical appointments?: No Do you have trouble paying your heating and electricity bill?: No Do you have trouble taking care of your child, family member or friend?: No Do you have trouble with day-to-day activities such as bathing, preparing meals, shopping, managing finances, etc.?: No Are you currently unemployed and looking for a job?: No Are you interested in more education?: No Please select the resources that you would like help with: None Currently or been in a relationship where the following occur: No concerns reported THRIVE Score: 0 BROOKLYNN-7 AMB Questionnaire BROOKLYNN-7 Date BROOKLYNN - 7 assessed: 05/13/25 Source: Developed by Drs. Teddy Cannon, Anne Justice, Josh Isaac and colleagues, with an educational frannie from [employer]. Review of Systems Const Denies body aches, Denies chills, Reports daytime sleepiness, Denies fever(s), Denies headache(s), Denies poor appetite and Reports snoring Eyes Reports no additional complaints ENT Denies dysphagia, Denies dizziness, Denies headache(s) and Denies odynophagia Card Denies chest pain, Denies syncope, Denies edema, Denies irregular heart rhythm, Denies lightheadedness and Denies dyspnea Resp Denies cough, Denies dyspnea and Reports snoring GI Denies abdominal pain, Reports constipation (Improve her treatment), Denies dysphagia, Reports heartburn, Denies diarrhea, Denies nausea, Denies odynophagia and Denies vomiting Reports no additional complaints Musc Reports no additional complaints and Denies abnormal gait Skin/Breast Reports system reviewed and no additional complaints, except as documented Neuro Denies abnormal gait, Denies dizziness, Denies syncope and Denies headache(s) Psych Reports anxiety, Denies depression, Reports panic attacks, Denies homicidal ideation and Denies suicidal ideation Physical exam (Primary Care) Vital Signs: Last Vital Signs Temp 97.4 F 05/13/25 10:09 Pulse 71 05/13/25 10:09 BP 126/90 H 05/13/25 10:09 Pulse Ox 99 05/13/25 10:09 Oxygen Delivery Method Room Air 05/13/25 10:09 BMI result Body Mass Index 37.1 Tobacco/Smoking Status: Tobacco use Status Tobacco use date assessed 05/13/25 05/13/25 10:14 Patient Tobacco Use Status Current someday Tobacco ( 05/13/25 10:14 Socially; On weekends) Tobacco use type Cigarette 05/13/25 10:14 e-Cigarette/Vaping Use Never Used 05/13/25 10:14 Thrive Assessment: Date of Thrive Assessment Date Thrive assessed 05/13/25 05/13/25 10:14 Currently or been in a relationship where the following occur: No concerns reported Const General: cooperative, healthy appearing, comfortable and no acute distress Orientation/consciousness: patient oriented x3 HENMT Head: Yes normocephalic Ears: hearing grossly normal bilaterally General nose exam: Normal external nose present Eyes General: appearance normal, both eyes and all related structures Conjunctivae: conjunctivae normal Neck Neck: Yes full ROM and Yes no lymphadenopathy Resp Effort & Inspection: normal respiratory effort Auscultation: clear to auscultation bilaterally, no crackles, no rales, no rhonchi and no wheezes Cardio Rate: regular rate Rhythm: regular rhythm Heart sounds: S1 normal heart sound present and S2 normal heart sound present GI Inspection: Yes obesity Palpation (GI): Soft to palpation and nontender Auscultation: normal bowel sounds General: Yes no CVA tenderness Back/Spine/Pelvis Back: no CVA tenderness Skin General skin exam: no rashes or lesions noted Neuro General: patient oriented x3 Gait exam (Neuro): Normal gait present Extrem General: Yes normal to inspection, Yes full ROM and No edema Psych Affect: normal affect Attitude: cooperative Insight: Good insight present (Psych) Judgement: Good judgement present (Psych) Results Reviewed Results Reviewed: Laboratory Tests 03/23/25 03/23/25 03/23/25 11:09 11:15 11:18 WBC RBC Hgb Hct MCV MCH MCHC RDW Plt Count MPV Sodium 143 Potassium 4.1 Chloride 108 Carbon Dioxide 28 Anion Gap 11 L BUN 11 Creatinine 0.70 Estimated GFR > 60 Fasting Glucose 86 Calcium 9.0 Total Bilirubin 0.4 AST 17 ALT 15 Alkaline Phosphatase 97 C-React Prot High Sens 14.9 H Total Protein 7.2 Albumin 4.0 Triglycerides 160 H Cholesterol 211 H LDL Cholesterol, Calc 138 H HDL Cholesterol 41 25-OH Vitamin D Total 17.7 L TSH 0.95 Beta HCG, Quant Urine Color Yellow Urine Appearance Clear Urine pH 5.5 Ur Specific [place] 1.025 Urine Protein Negative Urine Glucose (UA) Negative Urine Ketones Negative Urine Blood Negative Urine Nitrite Negative Ur Leukocyte Esterase Small (1+) H Urine RBC 0-2 Urine WBC 0-5 Ur Squamous Epith Cells 6-10 Urine Bacteria 1+ Hyaline Casts 0-2 04/27/25 10:49 WBC 9.7 RBC 5.13 Hgb 13.3 Hct 40.6 MCV 79.1 L MCH 25.9 L MCHC 32.8 RDW 15.7 Plt Count 295 MPV 10.8 Sodium Potassium Chloride Carbon Dioxide Anion Gap BUN Creatinine Estimated GFR Fasting Glucose Calcium Total Bilirubin AST ALT Alkaline Phosphatase C-React Prot High Sens Total Protein Albumin Triglycerides Cholesterol LDL Cholesterol, Calc HDL Cholesterol 25-OH Vitamin D Total TSH 0.92 Beta HCG, Quant < 2 Urine Color Urine Appearance Urine pH Ur Specific [place] Urine Protein Urine Glucose (UA) Urine Ketones Urine Blood Urine Nitrite Ur Leukocyte Esterase Urine RBC Urine WBC Ur Squamous Epith Cells Urine Bacteria Hyaline Casts Coding Level of Care Code Est Pt Level 3 (44563) Diagnoses Anxiety F41.9 Panic attacks F41.0 Pure hypercholesterolemia E78.00 Hyperlipidemia type: pure hypercholesterolemia Class 2 obesity without serious comorbidity with body mass index (BMI) of 37.0 to 37.9 in adult, unspecified obesity type E66.812; Z68.37 Obesity type: unspecified obesity type Obesity classification: adult class 2 (BMI 35 - 39.9) Serious obesity comorbidity presence: without serious comorbidity Body mass index: BMI 37.0-37.9 Vitamin D deficiency E55.9 Chronic constipation K59.09 Apneic episode R06.81 Daytime hypersomnia G47.10 Snoring R06.83 Heartburn R12 Time Spent (min) 36 Assessment & Plan Assessment & Plan (1) Anxiety: Code(s): F41.9 - Anxiety disorder, unspecified Category: Medical (2) Panic attacks: Code(s): F41.0 - Panic disorder [episodic paroxysmal anxiety] Category: Medical (3) HLD (hyperlipidemia): Code(s): E78.5 - Hyperlipidemia, unspecified Category: Medical Qualifiers: Hyperlipidemia type: pure hypercholesterolemia Qualified Code(s): E78.00 - Pure hypercholesterolemia, unspecified (4) Obesity: Code(s): E66.9 - Obesity, unspecified Category: Medical Qualifiers: Obesity type: unspecified obesity type Obesity classification: adult class 2 (BMI 35 - 39.9) Serious obesity comorbidity presence: without serious comorbidity Body mass index: BMI 37.0-37.9 Qualified Code(s): E66.812 - Obesity, class 2; Z68.37 - Body mass index [BMI] 37.0-37.9, adult (5) Vitamin D deficiency: Code(s): E55.9 - Vitamin D deficiency, unspecified Category: Medical (6) Chronic constipation: Code(s): K59.09 - Other constipation Category: Medical (7) Apneic episode: Code(s): R06.81 - Apnea, not elsewhere classified Category: Medical (8) Daytime hypersomnia: Code(s): G47.10 - Hypersomnia, unspecified Category: Medical (9) Snoring: Code(s): R06.83 - Snoring Category: Medical (10) Heartburn: Code(s): R12 - Heartburn Category: Medical Plan The patient will continue with the current anxiety medication, with an increase in dosage to 100 mg as planned, and a follow-up in six weeks to assess the effectiveness of the treatment. For constipation, the patient will continue using MiraLax, which has shown improvement in symptoms. The patient is scheduled for a biopsy following an abnormal gynecological ultrasound, and results will be awaited to determine further management. For heartburn, the patient will start omeprazole 40 mg daily, to be taken in the morning before meals, and dietary modifications have been advised to avoid trigger foods and eating close to bedtime. The patient will also be monitored for cholesterol levels, with lifestyle changes recommended to reduce intake of high-cholesterol foods, and a follow-up is planned in three months. Vitamin D supplementation at 2000 IU daily is recommended to address the deficiency, with the expectation of improved energy levels. Patient was informed and verbally consented to the use of an ambient scribe for clinic note documentation during this visit. Orders: Orders RT home sleep study 05/13/25 G47.10 - Hypersomnia, unspecified, R06.81 - Apnea, not elsewhere classified, R06.83 - Snoring Lipid Panel 3 Months E55.9 - Vitamin D deficiency, unspecified, E66.9 - Obesity, unspecified, E78.5 - Hyperlipidemia, unspecified, F41.9 - Anxiety disorder, unspecified, G47.10 - Hypersomnia, unspecified, J45.41 - Moderate persistent asthma with (acute) exacerbation, K59.09 - Other constipation, R06.83 - Snoring UA CC w/rflx Micro + Cult 3 Months E55.9 - Vitamin D deficiency, unspecified, E66.9 - Obesity, unspecified, E78.5 - Hyperlipidemia, unspecified, F41.9 - Anxiety disorder, unspecified, G47.10 - Hypersomnia, unspecified, J45.41 - Moderate persistent asthma with (acute) exacerbation, K59.09 - Other constipation, R06.83 - Snoring Vitamin D 25-OH Total 3 Months E55.9 - Vitamin D deficiency, unspecified, E66.9 - Obesity, unspecified, E78.5 - Hyperlipidemia, unspecified, F41.9 - Anxiety disorder, unspecified, G47.10 - Hypersomnia, unspecified, J45.41 - Moderate persistent asthma with (acute) exacerbation, K59.09 - Other constipation, R06.83 - Snoring Complete Blood Count Auto Diff 3 Months E55.9 - Vitamin D deficiency, unspecified, E66.9 - Obesity, unspecified, E78.5 - Hyperlipidemia, unspecified, F41.9 - Anxiety disorder, unspecified, G47.10 - Hypersomnia, unspecified, J45.41 - Moderate persistent asthma with (acute) exacerbation, K59.09 - Other constipation, R06.83 - Snoring Comprehensive Industry. Panel Fast 3 Months E55.9 - Vitamin D deficiency, unspecified, E66.9 - Obesity, unspecified, E78.5 - Hyperlipidemia, unspecified, F41.9 - Anxiety disorder, unspecified, G47.10 - Hypersomnia, unspecified, J45.41 - Moderate persistent asthma with (acute) exacerbation, K59.09 - Other constipation, R06.83 - Snoring Triiodothyronine T3 Total 3 Months E55.9 - Vitamin D deficiency, unspecified, E66.9 - Obesity, unspecified, E78.5 - Hyperlipidemia, unspecified, F41.9 - Anxiety disorder, unspecified, G47.10 - Hypersomnia, unspecified, J45.41 - Moderate persistent asthma with (acute) exacerbation, K59.09 - Other constipation, R06.83 - Snoring Medications: New sertraline 100 mg PO DAILY 30 tabs 3RF omeprazole 40 mg PO DAILY 30 caps 3RF Refilled albuterol sulfate 2.5 mg (3 mL) inhalation Q4-6H PRN 180 mL 0RF DX: J45.909 30 days Discontinued sertraline Discontinued Reason: Duplicate 50 mg PO DAILY 30 tabs 3RF Patient Instructions: - Continue anxiety medication as prescribed, increasing to 100 mg when available. - Use MiraLax for constipation as needed. - Attend biopsy appointment as scheduled. - Start omeprazole 40 mg daily for heartburn, take in the morning before meals. - Avoid eating close to bedtime and reduce intake of trigger foods. - Follow dietary recommendations to lower cholesterol intake. - Take vitamin D supplement 2000 IU daily. - Follow up in six weeks for anxiety management and in three months for cholesterol levels.
[2025-05-13 10:09] VITALS: BP 126/90; PULSE 71; TEMP 36.3; O2SAT 99; BMI 37.1
== END 2025-05-13 11:01 | disposition home or self-care (01) ==
LOC: HO.HMCH 10:05
DX: F41.9 Anxiety disorder, unspecified (principal); F41.0 Panic disorder [episodic paroxysmal anxiety]; E78.00 Pure hypercholesterolemia, unspecified; E66.812 Obesity, class 2; Z68.37 Body mass index [BMI] 37.0-37.9, adult; E55.9 Vitamin D deficiency, unspecified; K59.09 Other constipation; R06.81 Apnea, not elsewhere classified; G47.10 Hypersomnia, unspecified; R06.83 Snoring; R12 Heartburn

== ENCOUNTER → 2025-05-13 10:04 | Outpatient (BNVA) | payer OTHER, SELFPAY | DX: F41.0 Panic disorder [episodic paroxysmal anxiety] (principal); E78.00 Pure hypercholesterolemia, unspecified; E66.812 Obesity, class 2; Z68.37 Body mass index [BMI] 37.0-37.9, adult; E55.9 Vitamin D deficiency, unspecified; K59.09 Other constipation; R06.81 Apnea, not elsewhere classified; G47.10 Hypersomnia, unspecified; R06.83 Snoring; R12 Heartburn | CPT/HCPCS: 99212 ==

== ENCOUNTER 2025-05-20 09:17 | Outpatient (AMB) | payer OTHER, SELFPAY ==
--- NOTE | 2025-05-20 09:41 | A.OFFVIS_ITS ---
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: No Information Interpreted: non-clinical & clinical Complaint Inspector: Complaint Inspector Present (Josefina TORRES) Allergies No Known Allergies Allergy (Unknown, Verified 05/20/25 09:48) NKA HPI Comments Details: Presenting for EMB, Pap smear showed KAYLEIGH 3 HPV 18 positive PFSH Medical History Chronic constipation Supraumbilical hernia (06/04/24) Obesity Asthma Surgical History Umbilical hernia (06/04/24) H/O tubal ligation History of cholecystectomy Family History Father Alcoholism Drug abuse Substance use disorder Mother Hypertension Family/Other Hypertension Asthma Social History Household Members: Family Household Members Other:: Son Housing: House Alcohol intake: current Alcohol intake frequency: holidays/special occasions only Patient Tobacco Use Status: Current someday Tobacco user (Socially; On weekends) Tobacco use type: Cigarette e-Cigarette/Vaping Use: Never Used Second Hand Smoke Exposure: Yes service: No Current occupational status: employed Current occupational exposures/hazards: No Cognitive needs: No Hearing needs: No Vision needs: No Female Reproductive History Menstrual Age of Menarche: 8 Review of Systems Const All systems reviewed & are unremarkable except as noted in HPI and below Reports as per HPI and Reports no additional complaints GI Reports no additional complaints Reports no additional complaints Physical Exam Vital Signs: BMI result Body Mass Index 37.1 Office Procedures Colposcopy Colposcopy: Pre-Procedure Counseling: Before beginning the procedure, I conducted comprehensive counseling with the patient. We thoroughly discussed the procedure itself, including its details, alternatives, and all associated risks. This included but not limited to the following complications such as bleeding, infection, and injury to the vagina, bladder, and vessels, as well as the potential need for transfusion with all its associated risks. Subsequently, the patient sign the consent. Pap smear result: High grade JACOBO, HPV positive Urine test in office = Negative Procedure: During the procedure, the following steps were performed: A speculum was inserted, and acetic acid was applied. Colposcopy was conducted, allowing visualization of the transformation zone. Acetowhite lesions were identified at the 5+ 7+ 11+ 12+ 3 o'clock position. Cervical biopsies were obtained from the 5+ 7+ 11+ 12+ 3 o'clock position, followed by an endocervical curettage (ECC). Vaginoscopy of the upper vagina revealed no evidence of aceto-white lesions. Hemostasis was achieved using Monsel solution, and the patient tolerated the procedure well. Post-Procedure Instructions: The patient was advised to promptly contact the office or the after hours answering service or go to the emergency room if experiencing a temperature exceeding 100.4?F, abdominal pain, nausea/vomiting, or bleeding. Additionally, the patient was instructed to abstain from vaginal intercourse and bathtub use. The patient confirmed understanding of these instructions. Discharge Instructions: The patient was instructed to schedule a follow-up appointment in 2 weeks for further evaluation and management. Please note that this note was generated using a voice recognition program, and errors may have occurred during animal laboratory helper. [id number] of cervix including upper vagina with biopsy and ECC Procedure code (CPT) selection complete Endometrial Biopsy Details: The patient was counseled regarding the indication and benefits of endometrial sampling to rule out endometrial pathology including not limited to endometrial hyperplasia or endometrial cancer and others; The alternatives (Either do nothing vs. hysteroscopy D&C) & the risks were discussed with the patient including but not limited: pain, uterine perforation, bleeding, infection, possible injury to bladder, bowel, ureter, possible need for blood transfusion with all its possible risks. The patient verbalized understanding all questions answered and signed consent. Urine test done in the office was negative The patient was placed into the dorsal lithotomy position; a speculum was inserted in the vagina. Using aseptic technique for the procedure, the cervix was cleansed with Betadine. The anterior lip of the cervix was grasped with a single tooth tenaculum. The uterus was sounded to 7 cm with a 4 mm Pipelle was used. Tissues samples were obtained and placed in formalin, in a patient labeled container and sent to the pathology department. At the end of the procedure, there was minimal bleeding noted The patient tolerated the procedure well and was discharged in good condition with the following instructions: Nothing in the vagina until the bleeding stops. No sex until the bleeding stops, to call if any of the following occurs: fever (>100.4), flu-like symptoms, abdominal pain, heavy bleeding, four smelling vaginal discharge. The patient was instructed to schedule a Follow up appointment in 2 weeks to discuss pathology results of the biopsy and treatment options. This note was generated with a voice recognition program. Some errors may have been overlooked during the review of this note. Sometimes these errors may affect the content or meaning of a given sentence. 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 the false positive/negative rate of a Pap smear as a screening test in detecting cervical cancer and the indication for a diagnostic test -colposcopy, biopsy, endocervical curettage. The patient verbalized understanding and agreed with the plan, all questions answered. Colposcopy, biopsy /ECC done, see procedure note (2) Abnormal uterine bleeding (AUB): Code(s): N93.9 - Abnormal uterine and vaginal bleeding, unspecified Category: Medical Plan: EMB done, see procedure note Orders: Orders AMB Endometrial Biopsy Today N93.9 - Abnormal uterine and vaginal bleeding, unspecified AMB Colposcopy Today R87.613 - High grade squamous intraepithelial lesion on cytologic smear of cervix (HGSIL) Coding Level of Care Code Procedure Only Diagnoses High grade squamous intraepithelial lesion (HGSIL) on cytologic smear of cervix R87.613 Abnormal uterine bleeding (AUB) N93.9 CPT Codes Colposcopy - CPT: 71461-Nxpvsgdas of cervix including upper vagina with biopsy and ECC ([id number]) Endometrial Biopsy - CPT: 83931-Vlbrnsdknxj Biopsy ([id number])
[2025-05-20 09:48] VITALS: BMI 37.1
== END 2025-05-20 10:16 | disposition home or self-care (01) ==
LOC: HO.HWS 09:18
PROVIDERS: Visit Provider Obstetrics & Gynecology
DX: R87.613 High grade squamous intraepithelial lesion on cytologic smear of cervix (HGSIL) (principal); N93.9 Abnormal uterine and vaginal bleeding, unspecified
CPT/HCPCS: 57454; 58110

== ENCOUNTER 2025-05-20 09:17 | Outpatient (REF) | payer OTHER, SELFPAY | END 2025-05-20 09:18 | disposition home or self-care (01) | LOC: HO.LNP 09:17 | PROVIDERS: Visit Provider Obstetrics & Gynecology | DX: R87.613 High grade squamous intraepithelial lesion on cytologic smear of cervix (HGSIL) (principal); N93.9 Abnormal uterine and vaginal bleeding, unspecified; N88.9 Noninflammatory disorder of cervix uteri, unspecified; Z98.51 Tubal ligation status | CPT/HCPCS: 57454; 58110; 88305; 88341; 88342 ==

== ENCOUNTER 2025-05-25 10:21 | Outpatient (AMB) | payer OTHER, SELFPAY ==
[2025-05-25 10:24] VITALS: BMI 37.1
--- NOTE | 2025-05-25 10:24 | MHC.OFFVIS ---
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 The following workup was done.: H&H= 13.3/40.6 TSH, hCG, GC and chlamydia were negative. Co testing was done KAYLEIGH 3/HPV 18 positive Colposcopy/Endometrial biopsy pathology showed no evidence of hyperplasia and/or malignancy: A. Endometrium, biopsy: Disordered proliferative endometrium; no atypia or hyperplasia identified. B. Endocervix, curettage: Rare endocervical epithelium within normal limits; squamous epithelium within normal limits; no atypia identified. C. Cervix, 3 o'clock, biopsy: - Small foci of high-grade squamous intraepithelial lesion (KAYLEIGH 3). - Endocervical epithelium within normal limits. D. Cervix, 5 o'clock, biopsy: - High-grade squamous intraepithelial lesion (KAYLEIGH 2-3). - Endocervical epithelium within normal limits. E. Cervix, 7 o'clock, biopsy: - High-grade squamous intraepithelial lesion (KAYLEIGH 2-3). - Endocervical epithelium within normal limits. F. Cervix, 11 o'clock, biopsy: - Squamous mucosa within normal limits. - No endocervical epithelium identified. G. Cervix, 12 o'clock, biopsy: Inflamed cervical transformation zone mucosa with reactive changes. Mammogram was scheduled 06/24 Pelvic ultrasound showed the following: Uterus: The uterus is normal in size, measuring 11.1 x 6.5 x 7.0 cm. Myometrium has a normal echotexture. No fibroids are identified. Endometrium: The endometrial stripe measures 11 mm in thickness. There are nabothian cysts in the cervix. Right ovary: The right ovary measures 3.6 x 1.9 x 3.1 cm. The right ovary is normal in size and echotexture. Left ovary: The left ovary measures 3.5 x 2.1 x 2.4 cm. The left ovary is normal in size and echotexture. Pelvic fluid: none. PFSH Medical History Chronic constipation Supraumbilical hernia (06/04/24) Obesity Asthma Surgical History Umbilical hernia (06/04/24) H/O tubal ligation History of cholecystectomy Family History Father Alcoholism Drug abuse Substance use disorder Mother Hypertension Family/Other Hypertension Asthma Social History Household Members: Family Household Members Other:: Son Housing: House Alcohol intake: current Alcohol intake frequency: holidays/special occasions only Patient Tobacco Use Status: Current someday Tobacco user Tobacco use type: Cigarette e-Cigarette/Vaping Use: Never Used Second Hand Smoke Exposure: Yes service: No Current occupational status: employed Current occupational exposures/hazards: No Cognitive needs: No Hearing needs: No Vision needs: No Female Reproductive History Menstrual Age of Menarche: 8 Date of last menstrual period: 08/18/20 Total pregnancies: 2 Full term: 2 Review of Systems Const All systems reviewed & are unremarkable except as noted in HPI and below Reports as per HPI and Reports no additional complaints Card Reports as per HPI and Reports no additional complaints Resp Reports as per HPI and Reports no additional complaints GI Reports no additional complaints Reports no additional complaints Physical Exam Vital Signs: BMI result Body Mass Index 37.1 Const General: cooperative, healthy appearing and comfortable Resp Effort & Inspection: normal respiratory effort Auscultation: clear to auscultation bilaterally Percussion: percussion normal Cardio Palpation: normal PMI Rate: regular rate Rhythm: regular rhythm Heart sounds: no murmurs and no rubs Peripheral pulses: Peripheral pulses 2+ throughout GI Inspection: Yes normal to inspection Palpation (GI): Soft to palpation, nontender, no guarding, not rigid and No hepatosplenomegaly present Percussion: Yes normal to percussion Auscultation: normal bowel sounds Rectal Exam - Female: deferred Assessment & Plan Assessment & Plan (1) Abnormal uterine bleeding (AUB): Code(s): N93.9 - Abnormal uterine and vaginal bleeding, unspecified Category: Medical Plan: Discussed with the patient the results of the work up done and options of treatment including Lysteda, BCP's, Mirena IUD, endometrial ablation and hysterectomy. All pros, cons, risks and benefits if each option was discussed with the patient and the patient decided to go ahead with Lysteda , so a more detailed discussion re: Lysteda including mechanism of action, benefits, risks including but not limited to thrombosis and strokes, Instructions were given on how to use, 2 tablets p.o. 3 times a day day 1 up to 3-5 days of menses and to schedule a 3 months follow-up appointment. The patient verbalized understanding and agreed with the plan. 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 Will proceed with LEEP cone was post cone ECC. Discussed with the patient the procedure, its benefits and risks including bleeding, infection, possible need for blood transfusion with all its risk ( HIV, syphilis, Hepatitis, anaphylaxis shock, others..), injury to bladder, rectum, possible re-excision for positive margins, potential need for hysterectomy, possible future negative impact on fertility including ( cervical stenosis, incompetence , increase risk for c section 2ndary to cervical scarring and failure of dilatation), possible positive margin necessitating re-excision. Also discussed the patient options of anesthesia either paracervical block versus IV sedation/MAC, prefers to proceed with IV sedation/MAC. All questions answered, the patient verbalized understanding and signed the consent. Medications: New tranexamic acid 1,300 mg (2 x 650 mg) PO TID 30 tabs 0RF 5 days Coding Level of Care Code Est Pt Level 3 (36714) Diagnoses Abnormal uterine bleeding (AUB) N93.9 KAYLEIGH III (cervical intraepithelial neoplasia grade III) with severe dysplasia D06.9
== END 2025-05-25 11:08 | disposition home or self-care (01) ==
LOC: HO.HWS 10:22
PROVIDERS: Visit Provider Obstetrics & Gynecology
DX: N93.9 Abnormal uterine and vaginal bleeding, unspecified (principal); D06.9 Carcinoma in situ of cervix, unspecified
CPT/HCPCS: 99213

== ENCOUNTER → 2025-05-25 10:21 | Outpatient (BNVA) | payer OTHER, SELFPAY | PROVIDERS: Visit Provider Obstetrics & Gynecology | DX: Z71.2 Person consulting for explanation of examination or test findings (principal); N93.9 Abnormal uterine and vaginal bleeding, unspecified; D06.9 Carcinoma in situ of cervix, unspecified | CPT/HCPCS: 99212 ==

== ENCOUNTER 2025-06-03 09:24 | Day surgery (SDC) | payer OTHER, SELFPAY ==
[2025-06-01 08:05] VITALS: BMI 37.1
--- NOTE | 2025-06-02 09:17 | P.CONAN_ITS ---
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 (Acute) Heartburn (Acute) Vitamin D deficiency (Acute) HLD (hyperlipidemia) (Acute) Apneic episode (Acute) Snoring (Acute) Abnormal uterine bleeding (AUB) (Acute) Chronic constipation (Acute) Anxiety (Acute) Daytime hypersomnia (Acute) Screening for STD (sexually transmitted disease) (Acute) Annual physical exam (Acute) Panic attacks (Acute) Heavy menstrual period (Acute) Postop check (Acute) Umbilical hernia (Acute 06/04/24) Ventral hernia (Acute) Obesity (Acute) Physical exam (Acute) Asthma (Acute) Past Medical History Medical History Chronic constipation Supraumbilical hernia (06/04/24) Obesity Asthma Family History Family History Father Alcoholism Drug abuse Substance use disorder Mother Hypertension Family/Other Hypertension Asthma Family history of problems with anesthesia: No Surgical History Surgical History Umbilical hernia (06/04/24) H/O tubal ligation History of cholecystectomy History of Problems with Anesthesia: No Social History Social History Household Members: Family Household Members Other:: Son Housing: House Are you a primary home health care case manager to a significant other at home: No Do you presently have visiting nurse or other home services: No Alcohol intake: current Alcohol intake frequency: does not drink Patient Tobacco Use Status: Current everyday Tobacco user Tobacco use type: Cigarette Cigarettes Per Day: 5 e-Cigarette/Vaping Use: Never Used Second Hand Smoke Exposure: No Use of substances other than those prescribed or required for medical reasons: No Have you been hit, kicked, punched, or otherwise hurt by someone within the past year? If so, by whom?: No Are you DNR?: No Advance Directives: No Advance Directives Information Provided: Yes Advance Directives on File: No Patient : No FDLMP: Hx TL : No Poor oral hygiene: No service: No Current occupational status: employed Current occupational exposures/hazards: No Cognitive needs: No Hearing needs: No Vision needs: No Meds Allergies Allergy/AdvReac Type Severity Reaction Status Date / Time No Known Allergies Allergy Unknown NKA Verified 05/20/25 09:48 Home Medications ?Medication ?Instructions ?Recorded ?Confirmed ?Last Taken ?Type fluticasone propionate 50 1 spray intranasal DAILY 06/0905/13/25 Unknown History mcg/actuation nasal spray,suspension Exam Height,Weight and Vital Signs: Height 5 ft 5 in Weight 101.151 kg Assessment and Plan Assessment Anesthesia Assessment: Chart Reviewed Final Anesthetic Review Family History of Problems with Anesthesia: No History of Problems with Anesthesia: No Documented by User: Sandeep Hough MD 06/03/25 11:09 [facility] Past Medical History Medical History Chronic constipation Supraumbilical hernia (06/04/24) Obesity Asthma Narrative: undoubtedly has CHIOMA. Family History Family History Father Alcoholism Drug abuse Substance use disorder Mother Hypertension Family/Other Hypertension Asthma Surgical History Surgical History Umbilical hernia (06/04/24) H/O tubal ligation History of cholecystectomy Social History Social History Household Members: Family Household Members Other:: Son Housing: House Are you a primary home health care case manager to a significant other at home: No Do you presently have visiting nurse or other home services: No Alcohol intake: current Alcohol intake frequency: does not drink Patient Tobacco Use Status: Current everyday Tobacco user Tobacco use type: Cigarette Cigarettes Per Day: 5 e-Cigarette/Vaping Use: Never Used Second Hand Smoke Exposure: No Use of substances other than those prescribed or required for medical reasons: No Have you been hit, kicked, punched, or otherwise hurt by someone within the past year? If so, by whom?: No Are you DNR?: No Advance Directives: No Advance Directives Information Provided: Yes Advance Directives on File: No Patient : No FDLMP: Hx TL : No Poor oral hygiene: No service: No Current occupational status: employed Current occupational exposures/hazards: No Cognitive needs: No Hearing needs: No Vision needs: No Meds Allergies Allergy/AdvReac Type Severity Reaction Status Date / Time No Known Allergies Allergy Unknown NKA Verified 05/20/25 09:48 Home Medications ?Medication ?Instructions ?Recorded ?Confirmed ?Last Taken ?Type fluticasone propionate 50 1 spray intranasal DAILY 06/0905/13/25 Unknown History mcg/actuation nasal spray,suspension Exam Airway Mallampati Class: II TM Dist: <=3cm Neck ROM: Full Loose/Missing/Broken Teeth: No Heart: ok Lungs: ok Assessment and Plan Assessment Anesthesia Assessment: Anesthesia Plan Discussed Final Anesthetic Review NPO: Yes ASA Class: III Final Preanesthetic Review: No Changes in Pt Med Stat, Meds/Allgs Chart Reviewed, Consent Obtained/Reviewed and Anes Risks/Benef Reviewed Patient Risk: Intermediate Procedure Risk: Low Anesthetic Plan Anesthetic Plan: GA and Agree w/ Assess. and Plan Disposition: Standard PACU
[2025-06-03 09:46] VITALS: BMI 37.5
[2025-06-03 10:03] VITALS: BP 123/82; PULSE 82; RESP 18; TEMP 36.4; O2SAT 96
[2025-06-03 10:07] LABS: UPreg QC Valid YES
[2025-06-03] MEDS: Lactated Ringers 1,000 ML 100 ML IVCONT (10:12)
--- NOTE | 2025-06-03 11:19 | MHC.SHP ---
Pre-Procedural Eval Section A - 24 Hr Update-Section A only Date of Service: 06/03/25 The patient is an INPATIENT: No Changes since office visit: No Cold of Flu in the past 2 weeks, No New Medical Problems, No Changes in Medication and No Patient answered all questions The patient has been examined within 24 hours of the surgical procedure. The History & Physical has been completed within 30 days and I have reviewed it.: Yes Section B - Complete if H&P > 30 days Chief Complaint: Abnormal uterine and vaginal bleeding, unspecified Allergies: Allergies Allergy/AdvReac Type Severity Reaction Status Date / Time No Known Allergies Allergy Unknown NKA Verified 05/20/25 09:48 Plan Diagnosis/Plan: Unchanged I have reviewed the history and physical and performed a pertinent physical examination on my patient. No changes have occurred unless specified. Time Spent With Patient Time: Total time managing care of this patient today ____ minutes.
--- NOTE | 2025-06-03 11:46 | PM.OP ---
Brief Operative Note Date of Service: 06/03/25 Pre-op diagnosis: KAYLEIGH 3 Post-op diagnosis: same Procedure: LEEP CONE , top-hat excision with post CONE ECC Surgeon: Iain Sherman MD Anesthesia: GLMA and other (Paracervical block) Was an Commercial Relationship Manager used for this Procedure?: No Estimated blood loss (mL): 0 Pathology: other (Cervical cone, top-hat, Post cone ECC) Condition: stable Disposition: other (Home)
--- NOTE | 2025-06-03 11:47 | W.PM.OPN ---
Operative Note Operative Note Date of Service: 09/30/20 Narrative: Pre op diagnosis: KAYLEIGH 3 Operation: Colposcopy, Loop electrical excision procedure cone, top hat endocervical excision, post cone ECC Postop diagnosis: the same Quantitative blood loss: 50 cc Surgeon: Iani Sherman MD, FACOG Command Center Analyst: None Pathology: Cervical cone, top-hat endo cervical excision, endo cervical curettage Complications: none Anesthesia: GLMA and Para cervical block Procedure: The patient was put in a dorsal lithotomy position, scrubbed and draped in the usual sterile fashion. A speculum was inserted inside the patient's vagina. The cervix is assessed using the colposcope with acetic acid , the lesions were seen, and at least 1 cm of the squamocolumnar junction was observed. 20 x 5 mm size loop was selected based upon the diameter of the lesion. Lugol solution was used to outline the lesions and area of the transformation zone order to be removed 10 cc of xylocaine with epinephrine were injected submucosally into the surface of the cervix (ectocervix) at the 3, 6, 9, and 12 o'clock positions. The electrosurgical generator is set at 40 carr on blend 1. The loop is carefully passed simultaneously around and under the transformation zone, in order to ensure excising it making sure the lesion is at least 5 mm far from the specimen margins . The loop was allowed to glide through the cervix from one side to the other, allowing the cutting current to divide the tissue. Additional tissue was excised from this area with a smaller-diameter loop , endo cervical top-hat excision was performed An endo cervical curettage is performed following completion of excision, and hemostasis is obtained with a Ball electrode or regular tip cautery. At the end, Monsel's solution was applied to the cone bed. The patient tolerated the procedure well and, all instruments were taken out of the patient vaginal cavity, and the patient was transferred to the PACU in stable condition.
[2025-06-03 11:53] VITALS: BP 113/76; PULSE 104; RESP 20; TEMP 36.4; O2SAT 93
[2025-06-03 11:58] VITALS: BP 118/79; PULSE 86; RESP 20; O2SAT 93
[2025-06-03 12:03] VITALS: BP 115/76; PULSE 89; RESP 20; O2SAT 96
[2025-06-03 12:08] VITALS: BP 103/74; PULSE 81; RESP 16; O2SAT 95
[2025-06-03 12:23] VITALS: BP 114/75; PULSE 81; RESP 16; TEMP 36.1; O2SAT 96
== END 2025-06-03 12:50 | disposition home or self-care (01) ==
PROVIDERS: Visit Provider Obstetrics & Gynecology
PROC: 0UBC7ZZ Excision of Cervix, Via Natural or Artificial Opening (ICD-10-PCS; CPT 57522; principal; 2025-06-03 11:30)
DX: N93.9 Abnormal uterine and vaginal bleeding, unspecified (principal); D06.0 Carcinoma in situ of endocervix; K59.09 Other constipation; J45.909 Unspecified asthma, uncomplicated; E66.9 Obesity, unspecified; Z68.37 Body mass index [BMI] 37.0-37.9, adult; Z98.51 Tubal ligation status; Z90.49 Acquired absence of other specified parts of digestive tract; Z98.890 Other specified postprocedural states; F17.210 Nicotine dependence, cigarettes, uncomplicated; Z79.51 Long term (current) use of inhaled steroids
CPT/HCPCS: 57461; 81025; 88305; 88307; J1885; J2003; J2004; J2405; J2704; J3010

== ENCOUNTER → 2025-06-03 09:24 | Outpatient (BNV) | payer OTHER, SELFPAY | PROVIDERS: Visit Provider Obstetrics & Gynecology | DX: D06.9 Carcinoma in situ of cervix, unspecified (principal) | CPT/HCPCS: 57461 ==

== ENCOUNTER 2025-06-17 09:14 | Outpatient (AMB) | payer OTHER, SELFPAY ==
--- NOTE | 2025-06-17 10:04 | MHC.OFFVIS ---
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 The pathology showed the following: A. Cervix, LEEP/cone: High-grade squamous intraepithelial lesion (KAYLEIGH 2) present at the endocervical margin; ectocervical margin uninvolved. B. Endocervix, top hat, excision: Detached fragment of high-grade squamous intraepithelial lesion (KAYLEIGH 2-3). C. Endocervix, post-cone, curettage: Fragments of benign endocervical glands; negative for squamous intraepithelial lesion. [facility] Medical History Chronic constipation Supraumbilical hernia (06/04/24) Obesity Asthma Surgical History Umbilical hernia (06/04/24) H/O tubal ligation History of cholecystectomy Family History Father Alcoholism Drug abuse Substance use disorder Mother Hypertension Family/Other Hypertension Asthma Social History Household Members: Family Household Members Other:: Son Housing: House Are you a primary hospice care sales consultant to a significant other at home: No Do you presently have visiting nurse or other home services: No Alcohol intake: current Alcohol intake frequency: does not drink Patient Tobacco Use Status: Current everyday Tobacco user Tobacco use type: Cigarette Cigarettes Per Day: 5 e-Cigarette/Vaping Use: Never Used Second Hand Smoke Exposure: No service: No Current occupational status: employed Current occupational exposures/hazards: No Cognitive needs: No Hearing needs: No Vision needs: No Female Reproductive History Menstrual Age of Menarche: 8 Date of last menstrual period: 08/18/20 Total pregnancies: 2 Full term: 2 Review of Systems Const All systems reviewed & are unremarkable except as noted in HPI and below Reports as per HPI and Reports no additional complaints Card Reports as per HPI and Reports no additional complaints Resp Reports as per HPI and Reports no additional complaints GI Reports no additional complaints Reports no additional complaints Physical Exam Const General: cooperative, healthy appearing and comfortable Resp Effort & Inspection: normal respiratory effort Auscultation: clear to auscultation bilaterally Percussion: percussion normal Cardio Palpation: normal PMI Rate: regular rate Rhythm: regular rhythm Heart sounds: no murmurs and no rubs Peripheral pulses: Peripheral pulses 2+ throughout GI Inspection: Yes normal to inspection Palpation (GI): Soft to palpation, nontender, no guarding, not rigid and No hepatosplenomegaly present Percussion: Yes normal to percussion Auscultation: normal bowel sounds Rectal Exam - Female: deferred General: Yes no CVA tenderness External Female Exam: normal external appearance and normal appearance of the urethra Speculum Exam - Vagina: normal appearance of the vagina, normal palpation, no lesions and no masses Speculum Exam - Cervix: normal appearance of the cervix, normal palpation, no lesions, no masses, nontender and Other cervical findings present (Cervical tissue remaining small? Not feasible for repeat LEEP) Bimanual exam- vagina & uterus: normal bimanual exam, normal palpation, uterine size normal, normal palpation, uterine shape normal, No Cervical tenderness present and non-tender Bimanual Exam- Adnexa, other: normal adnexae Back/Spine/Pelvis Back: no CVA tenderness Assessment & Plan Assessment & Plan (1) KAYLEIGH III (cervical intraepithelial neoplasia grade III) with severe dysplasia: Comment: Status post LEEP cone with positive endocervical margin Code(s): D06.9 - Carcinoma in situ of cervix, unspecified Category: Medical Plan: Discussed with the patient the results pathology, positive endocervical margins, the sensitivity, specificity, false-positive and false-negative rate were discussed with the patient Discussed with the patient that studies have consistently shown that patients with positive margins after an excisional procedure, compared with negative margins, are at significantly higher risk for residual or recurrent disease. Recurrence can occur years after treatment; Discussed with the patient the finding on pelvic exam showing repeat LEEP excision could be not feasible, in this case hysterectomy is an option Recommended referral to [facility] minimally invasive fruit or nut farm worker surgery. Discussed with the patient the different types of hysterectomies including, vaginal, laparoscopic assisted vaginal, robotic assisted laparoscopic,& abdominal with BSO. All pros, cons, r/b of each approach were discussed the patient including evidence that morbidity is less and recovery is shorter with minimally invasive approaches to hysterectomy. Discussed with the patient the lack of availability of the robot [employer] robot and/or minimally invasive cost controller specialist at [facility]. Will refer to [facility] minimally invasive fruit or nut farm worker surgery. Instructed the patient to call our office back in case a referral appointment is not scheduled, missed or canceled so that we will assist on rescheduling another appointment, the patient verbalized understanding agreed with the plan. Coding Level of Care Code Est Pt Level 3 (02090) Diagnoses KAYLEIGH III (cervical intraepithelial neoplasia grade III) with severe dysplasia D06.9
== END 2025-06-17 10:48 | disposition home or self-care (01) ==
LOC: HO.HWS 09:14
PROVIDERS: Visit Provider Obstetrics & Gynecology
DX: D06.9 Carcinoma in situ of cervix, unspecified (principal)
CPT/HCPCS: 99213

== ENCOUNTER → 2025-06-17 09:14 | Outpatient (BNVA) | payer OTHER, SELFPAY | PROVIDERS: Visit Provider Obstetrics & Gynecology | DX: Z98.890 Other specified postprocedural states (principal); D06.9 Carcinoma in situ of cervix, unspecified | CPT/HCPCS: 99212 ==

== ENCOUNTER 2025-08-16 10:48 | Outpatient (AMB) | payer OTHER, SELFPAY ==
[2025-08-16 10:54] VITALS: BP 138/72; PULSE 95; RESP 18; TEMP 36.2; O2SAT 96; BMI 38.1
--- NOTE | 2025-08-16 10:54 | A.OFFPC_ITS ---
Vital Signs 08/16/25 10:54 Height 5 ft 5 in Weight 229 lb BMI 38.1 BP 138/72 Blood Pressure Location Lt brachial Position Sitting Respiration 18 Pulse 95 Pulse Source Pulse Oximeter Temp 97.1 F Temp Source Temporal Artery Scan Pulse Oximetry (%) 96 Oxygen Delivery Method Room Air Intake Visit Reasons: hld/vit d/constipation/fatigue/anxiety Pilot Submersible Required: No Accompanied by: Self / Same As Patient Allergies No Known Allergies Allergy (Unknown, Verified 08/16/25 11:07) NKA Medication List - Last Reconciled 08/16/25 by NATHALIA Olivares albuterol sulfate 90 mcg/actuation 2 inhalations inhalation Q3-4H albuterol sulfate 2.5 mg (3 mL) inhalation Q4-6H PRN 30 days fluticasone propionate 50 mcg/actuation 1 spray intranasal DAILY fluticasone propionate 110 mcg/actuation (Flovent HFA) 1 puff inhalation BID ibuprofen 600 mg PO Q6H PRN omeprazole 40 mg PO DAILY polyethylene glycol 3350 (Miralax) 17 grams PO DAILY sertraline 100 mg PO DAILY Tobacco use date assessed: 08/16/25 Dental Screening Dental Screen Date: 08/16/25 Did you have a dental visit in the last 12 months?: No Did you have a dental problem in the last 6 months where you did not have access to dental care?: No Was dental information given to patient?: No HPI hld/vit d/constipation/fatigue/anxiety HPI Details The patient is 40 year old female presenting for follow up appt The patient has not completed preordered labs for follow up; she was encouraged to get this done daniela Reports that she is feeling much better, she has been feeling better mentally and physically Reports that she has not lost any weight as yet though, she denies exercising or dieting, just cutting back on foods that are high in cholesterols but has not been paying attending to her calories. The patient also has a history of headaches, for which she takes Ibuprofen 800mg as needed and turns off the lights and go to sleep and the headache usually subsides by the time she wakes up. The patient headaches has been escalating lately prompting a need for a more robust intervention. Anxiety has been managed with sertraline 100mg. Reports that this is controlled on the current regimen. Regarding lifestyle, the patient discusses weight gain and the need for gradual changes, including being more active. She is taking a multivitamin. [facility] Medical History Chronic constipation Supraumbilical hernia (06/04/24) Obesity Asthma Surgical History Umbilical hernia (06/04/24) H/O tubal ligation History of cholecystectomy Family History Father Alcoholism Drug abuse Substance use disorder Mother Hypertension Family/Other Hypertension Asthma Social History Household Members: Family Household Members Other:: Son Housing: House Are you a primary health care facility administrator to a significant other at home: No Do you presently have visiting nurse or other home services: No Alcohol intake: current Alcohol intake frequency: does not drink Patient Tobacco Use Status: Current everyday Tobacco user Tobacco use type: Cigarette Cigarettes Per Day: 5 e-Cigarette/Vaping Use: Never Used Second Hand Smoke Exposure: No service: No Current occupational status: employed Current occupational exposures/hazards: No Cognitive needs: No Hearing needs: No Vision needs: No Female Reproductive History Menstrual Age of Menarche: 8 Questionnaire Thrive Questionnaire Date Thrive assessed: 11/11/24 I am a: Patient What is your living situation today?: I have a steady place to live Within the past 12 months, did the food you bought not last and you didn't have the money to get more?: Never true Within the past 12 months, did you worry whether your food would run out before you got money to buy more?: Never true Do you have trouble paying for medicines?: No Do you have trouble getting transportation to medical appointments?: No Do you have trouble paying your heating and electricity bill?: No Do you have trouble taking care of your child, family member or friend?: No Do you have trouble with day-to-day activities such as bathing, preparing meals, shopping, managing finances, etc.?: No Are you currently unemployed and looking for a job?: No Are you interested in more education?: No Please select the resources that you would like help with: None Currently or been in a relationship where the following occur: No concerns reported THRIVE Score: 0 BROOKLYNN-7 AMB Questionnaire BROOKLYNN-7 Date BROOKLYNN - 7 assessed: 05/13/25 Source: Developed by Drs. Teddy Cannon, Anne Justice, Josh Isaac and colleagues, with an educational frannie from [employer]. Review of Systems Const Denies body aches, Denies chills, Reports difficulty sleeping, Reports fatigue, Denies fever(s), Reports headache(s) (on and off), Denies poor appetite and Reports stops breathing during sleep Eyes Reports no additional complaints ENT Denies dysphagia, Denies dizziness, Reports headache(s) (on and off) and Denies odynophagia Card Denies chest pain, Denies syncope, Denies edema, Denies irregular heart rhythm, Denies lightheadedness and Denies dyspnea Resp Denies cough and Denies dyspnea GI Denies abdominal pain, Reports constipation (no issues on regimen), Denies dysphagia, Reports heartburn (stable on treatment), Denies diarrhea, Denies nausea, Denies odynophagia and Denies vomiting Reports no additional complaints Musc Reports no additional complaints and Denies abnormal gait Skin/Breast Reports system reviewed and no additional complaints, except as documented Neuro Denies abnormal gait, Denies dizziness, Denies syncope and Reports headache(s) (on and off) Psych Reports anxiety (stable on regimen) and Reports panic attacks (none since treatment started) Endo Reports fatigue Physical exam (Primary Care) Vital Signs: Last Vital Signs Temp 97.1 F 08/16/25 10:54 Pulse 95 08/16/25 10:54 Resp 18 08/16/25 10:54 BP 138/72 08/16/25 10:54 Pulse Ox 96 08/16/25 10:54 Oxygen Delivery Method Room Air 08/16/25 10:54 BMI result Body Mass Index 38.1 Tobacco/Smoking Status: Tobacco use Status Tobacco use date assessed 08/16/25 08/16/25 11:01 Patient Tobacco Use Status Current everyday Tobacco 08/16/25 11:01 Tobacco use type Cigarette 08/16/25 11:01 e-Cigarette/Vaping Use Never Used 08/16/25 11:01 Thrive Assessment: Date of Thrive Assessment Date Thrive assessed 11/11/24 08/16/25 11:01 Currently or been in a relationship where the following occur: No concerns reported Const General: cooperative, healthy appearing, comfortable and no acute distress Orientation/consciousness: patient oriented x3 HENMT Head: Yes normocephalic Ears: hearing grossly normal bilaterally General nose exam: Normal external nose present Eyes General: appearance normal, both eyes and all related structures Conjunctivae: conjunctivae normal Neck Neck: Yes full ROM and Yes no lymphadenopathy Resp Effort & Inspection: normal respiratory effort Auscultation: clear to auscultation bilaterally, no crackles, no rales, no rhonchi and no wheezes Cardio Rate: regular rate Rhythm: regular rhythm Skin General skin exam: no rashes or lesions noted Neuro General: patient oriented x3 Gait exam (Neuro): Normal gait present Extrem General: Yes normal to inspection, Yes full ROM and No edema Psych Affect: normal affect Attitude: cooperative Insight: Good insight present (Psych) Judgement: Good judgement present (Psych) Coding Level of Care Code Est Pt Level 3 (59370) Diagnoses Anxiety F41.9 Panic attacks F41.0 Pure hypercholesterolemia E78.00 Hyperlipidemia type: pure hypercholesterolemia Class 2 obesity without serious comorbidity with body mass index (BMI) of 37.0 to 37.9 in adult, unspecified obesity type E66.812; Z68.37 Obesity type: unspecified obesity type Obesity classification: adult class 2 (BMI 35 - 39.9) Serious obesity comorbidity presence: without serious comorbidity Body mass index: BMI 37.0-37.9 Vitamin D deficiency E55.9 Chronic constipation K59.09 Apneic episode R06.81 Daytime hypersomnia G47.10 Snoring R06.83 Heartburn R12 Persistent headaches R51.9 Time Spent (min) 29 Assessment & Plan Assessment & Plan (1) Anxiety: Code(s): F41.9 - Anxiety disorder, unspecified Category: Medical Plan: Encouraged CBT Reports feeling better since sertraline was increased to 100 mg Denies SI/HI (2) Panic attacks: Code(s): F41.0 - Panic disorder [episodic paroxysmal anxiety] Category: Medical Plan: Similarly, no incidents since started on sertraline Denies SI/HI (3) HLD (hyperlipidemia): Code(s): E78.5 - Hyperlipidemia, unspecified Category: Medical Qualifiers: Hyperlipidemia type: pure hypercholesterolemia Qualified Code(s): E78.00 - Pure hypercholesterolemia, unspecified Plan: The patient has a history of slightly elevated cholesterol. Lab work was ordered to re-evaluate her cholesterol levels to monitor progress and guide further management. The patient was urged to complete follow up labs. (4) Obesity: Code(s): E66.9 - Obesity, unspecified Category: Medical Qualifiers: Obesity type: unspecified obesity type Obesity classification: adult cl ass 2 (BMI 35 - 39.9) Serious obesity comorbidity presence: without serious comorbidity Body mass index: BMI 37.0-37.9 Qualified Code(s): E66.812 - Obesity, class 2; Z68.37 - Body mass index [BMI] 37.0-37.9, adult Plan: Encouraged to exercise for at least 30 minutes a day/5 days a week Healthy eating discussed. Encouraged to eat fruits/vegetables, protein- fish/baked chicken, and to avoid salty/fried foods, sweets, caffeine and carbohydrates. Encouraged to increase water intake 6-8 glasses a day (5) Vitamin D deficiency: Code(s): E55.9 - Vitamin D deficiency, unspecified Category: Medical Plan: Continue vitamin D3 OTC daily (6) Chronic constipation: Code(s): K59.09 - Other constipation Category: Medical Plan: Increase fiber in diet (fruits/vegetables 4-5 servings daily) Increase fluid intake and decrease caffeine/energy drinks (may cause mild dehydration) Encouraged regular exercise (e.g., biking, walking, running) Continue MiraLax 17 g p.o. daily (7) Apneic episode: Code(s): R06.81 - Apnea, not elsewhere classified Category: Medical Plan: Home sleep study was ordered, pending completion to evaluate treatment option (8) Daytime hypersomnia: Code(s): G47.10 - Hypersomnia, unspecified Category: Medical Plan: Patient was referred for sleep study, which has not been completed as yet. (9) Snoring: Code(s): R06.83 - Snoring Category: Medical Plan: Same as above (10) Heartburn: Code(s): R12 - Heartburn Category: Medical Plan: Reinforced dietary restrictions Continue omeprazole 40 mg daily (11) Persistent headaches: Code(s): R51.9 - Headache, unspecified Category: Medical Plan: Discussed the patient fluid consumption. Admitted to be drinking around 2 water bottles/day. Drinks tea for added fluids. Increase fluids to at least 6 water bottles per day. Start magnesium oxide 400 mg at bedtime and vitamin B2 400 mg daily. We will add sumatriptan succinate for severe headaches. Continue ibuprofen 800 mg as needed for first-line treatment. Medications: New sumatriptan succinate take 1 tab at onset of headache; if no relief may repeat 1 tab after at least 2 hrs; max = 4 tabs/24 hr PO 14 tabs 2RF 30 days magnesium oxide 400 mg PO BEDTIME 90 tabs 3RF riboflavin (vitamin B2) 400 mg PO DAILY 90 tabs 3RF
== END 2025-08-16 11:26 | disposition home or self-care (01) ==
LOC: HO.HMCH 10:49
DX: F41.9 Anxiety disorder, unspecified (principal); F41.0 Panic disorder [episodic paroxysmal anxiety]; E78.00 Pure hypercholesterolemia, unspecified; E66.812 Obesity, class 2; Z68.37 Body mass index [BMI] 37.0-37.9, adult; E55.9 Vitamin D deficiency, unspecified; K59.09 Other constipation; R06.81 Apnea, not elsewhere classified; G47.10 Hypersomnia, unspecified; R06.83 Snoring; R12 Heartburn; R51.9 Headache, unspecified

== ENCOUNTER → 2025-08-16 10:48 | Outpatient (BNVA) | payer OTHER, SELFPAY | DX: E66.812 Obesity, class 2 (principal); R51.9 Headache, unspecified; F41.9 Anxiety disorder, unspecified; F41.0 Panic disorder [episodic paroxysmal anxiety]; E78.00 Pure hypercholesterolemia, unspecified; E55.9 Vitamin D deficiency, unspecified; K59.09 Other constipation; R06.81 Apnea, not elsewhere classified; G47.10 Hypersomnia, unspecified; R06.83 Snoring; R12 Heartburn; Z68.37 Body mass index [BMI] 37.0-37.9, adult | CPT/HCPCS: 99212 ==